=== PATIENT | male | born 1940 | race Caucasian/White ===

== ENCOUNTER 2019-02-22 11:17 | Inpatient (IN) ==
--- NOTE | 2019-02-22 11:29 | Emergency Department Note ---
Disposition Clinical Impression: Complete heart block, Malaise Fatigue Qualifiers: Fatigue type: unspecified Qualified Code(s): R53.83 - Other fatigue Disposition: Admitted As Inpatient Condition: Fair Time of Disposition: 12:30 Arrhythmia/Palpitations HPI - General Stated Complaint: "AV block" Time Seen by Provider: 02/22/19 11:28 Source: patient, family Mode of arrival: ambulatory Limitations: no limitations Nursing Notes Reviewed: Yes Vital Signs Reviewed: Yes - History of Present Illness HPI Narrative: Patient is a 79-year-old male past medical history of hyperlipidemia, BPH, diabetes, hypertension, presenting from cardiology clinic after one week of generalized malaise, back pain, fatigue. Patient states that he has "just not felt himself" lately and states that he has been getting more fatigued than usual. Patient states he has been having intermittent back pain which has since resolved which caused him to follow up with his urologist. CT scan done at urologist showed concern for cardiac blockage in the patient was sent to cardiology clinic for further evaluation. At cardiology clinic and EKG was c onducted that shows that the patient was in complete heart block which is why the patient was then sent to the emergency department. Upon presentation the patient is awake alert oriented he is engaged conversation answering questions appropriately he is in no acute distress there are no lateralizing signs. Skin is warm dry intact normal color, pupils are equal round reactive to light and accommodation, he is in no acute distress, cardiac auscultation reveals bradycardia, EKG does confirm a complete heart block without acute ischemic change, patient patient's lungs are clear to auscultation abdomen soft nontender nondistended, pulses are strong intact 4, there is no evidence of peripheral edema. Pacer pads were placed on the patient in the ED, vitals were taken and other than bradycardia were noted to be within normal limits, patient is otherwise stable at this time. We have contacted cardiology regarding the placement of a pacemaker who states that S patient is currently stable we she will hang a bag of dopamine at bedside in case he becomes symptomatic and otherwise admit to [facility] service with plans for permanent pacemaker placement tomorrow. Plan of care discussed with patient and his family members at bedside and they verbalized their understanding and agree with this course of action. Pt Subjective Complaint: irregular heart beat Onset (ago): day(s) Duration: constant Severity: moderate Associated symptoms: Reports: other (Fatigue, malaise) - Related Data Home Medications Medication Instructions Recorded Confirmed Aspirin/Dipyridamole 25/200 MG 1 cap PO BID 05/12/16 02/22/19 [Aggrenox 25mg-200mg] Finasteride [Proscar] 5 mg PO DAILY 05/12/16 02/22/19 Lisinopril [Zestril] 40 mg PO DAILY 05/12/16 02/22/19 Mirabegron [Myrbetriq] 25 mg PO 1300 05/12/16 02/22/19 Multivit-Min/FA/Lycopen/Lutein 1 tab PO 1300 05/12/16 02/22/19 [Centrum Silver Tablet] Pioglitazone [Actos] 45 mg PO DAILY 05/12/16 02/22/19 Simvastatin [Zocor] 40 mg PO HS 05/12/16 02/22/19 Sitagliptin Phosphate [Januvia] 50 mg PO DAILY 05/12/16 02/22/19 glyBURIDE [GlyBURIDE] 5 mg PO DAILY 05/12/16 02/22/19 Spironolactone [Aldactone] 50 mg PO 1300 12/19/16 02/22/19 Amlodipine Besylate 2.5 mg PO DAILY 02/22/19 02/22/19 Cholecalciferol (Vitamin D3) 2,000 unit PO 1300 02/22/19 02/22/19 [Vitamin D] Cinnamon Bark [Cinnamon] 1,000 mg PO 1300 02/22/19 02/22/19 DULoxetine [Cymbalta] 30 mg PO DAILY 02/22/19 02/22/19 Esomeprazole Magnesium [Nexium] 40 mg PO DAILY 02/22/19 02/22/19 Gabapentin [Neurontin] 300 mg PO HS 02/22/19 02/22/19 Ibuprofen/Diphenhydramine HCl 1 each PO HS 02/22/19 02/22/19 [Ibuprofen Pm Softgel] Ipratropium [place] 2 spray NS BID 02/22/19 02/22/19 Krill/Om-3/Dha/Epa/Phospho/Ast 1 each PO DAILY 02/22/19 02/22/19 [Krill Oil 500 mg Softgel] Metformin HCl [Glucophage] 1,000 mg PO BIDWM 02/22/19 02/22/19 Metoprolol Succinate [Toprol Xl] 50 mg PO DAILY 02/22/19 02/22/19 Tamsulosin [Flomax] 0.4 mg PO 1300 02/22/19 02/22/19 Vit C/E/Zn/Coppr/Lutein/Zeaxan 1 cap PO 1300 02/22/19 02/22/19 [Preservision Areds 2 Softgel] Allergies Allergy/AdvReac Type Severity Reaction Status Date / Time Penicillins AdvReac Rash Verified 12/19/16 11:03 Review of Systems: *See History of Present Illness for more detail Constitutional: Admits to fatigue, malaise Denies: fever, chills HEENT: Denies dysphagia/odynophagia, lymphadenopathy Cardiovascular: Denies: chest pain Respiratory: Denies: dyspnea, cough, hemoptysis Gastrointestinal: Denies: abdominal pain, nausea, vomiting, diarrhea, constipation, hematemesis, melena, hematochezia Genitourinary: Denies: hematuria Musculoskeletal: Admits: Recent resolved back pain, denies: neck pain Integumentary: Denies: rash Neurological: Admits: weakness, denies: Headaches, lightheadedness/dizziness, numbness, paresthesias, difficulty with ambulation. Endocrine: Admits: fatigue All systems ED: reviewed and negative except as stated. Review of Systems: As Per HPI Past Medical History - Past Medical History Medical history: Reports: cancer, CVA, diabetes, hyperlipidemia, hypertension Surgical history: Reports: hip replacement Psychiatric history: Reports: no psych history - Social History Smoking Status: Never smoker Smokeless Tobacco Status: No Alcohol use: Reports: none Drug use: Reports: none Physical Exam Constitutional: No acute distress, [id number], engaged to conversation, speech is fluid, answers questions appropriately Neuro: GCS 15, no overt focal neurological deficits Head: Atraumatic, normocephalic Eyes: Pupils equal, round and reactive to light, no scleral icterus, no conjunctival injection Neck: Trachea midline without deviation. Anterior neck is supple without swelling. *Chest: Symmetric chest wall rise *Heart: Cardiac rate is bradycardic, rhythm is regular with S1 and S2 , no S3 or S4 appreciated, no murmurs, gallops, rubs, or clicks. *Lungs: Lungs are clear to auscultation bilaterally, without accessory muscle use or prolonged expiratory phase. No wheezes, rhonchi or stridor appreciated. Abdomen: Abdomen is flat, soft to palpation, normal bowel sounds. No abdominal bruit auscultated. Non-distended, non-rigid, no organomegaly, no ascites appreciated. No pulsatile mass, no tenderness or guarding to palpation in all four quadrants, no rebound Extremities: Normal capillary refill without evidence of pedal edema, joint swelling or erythema. Pulses/motor intact in all 4 extremities. Psychiatric exam: Patient displays a normal affect and mood for the environment. No overt signs of hallucination. Integumentary: warm, dry, intact, normal color. No rash, cyanosis, diaphoresis, erythema, or pallor - General Limitations: no limitations General appearance: alert, in no apparent distress Course Course Narrative: Basic laboratory analysis conducted plus troponin, EKG, chest x-ray, coags Cardiology consult is placed and they will be following. Patient be admitted to hospital medicine service on ICU stepdown unit to [place] for further evaluation and management pending placement of permanent pacemaker tomorrow by interventional cardiology. Plan of care discussed with patient and family members at bedside and they verbalized understanding and agreement this course of action. The patient is currently hemodynamically stable time of admission. Vital Signs Temperature 97.9 F 02/22/19 11:29 Pulse Rate 32 02/22/19 11:29 Respiratory Rate 18 02/22/19 11:29 Blood Pressure 141/59 02/22/19 11:29 O2 Sat by Pulse Oximetry 98 02/22/19 11:29 Temperature 99.0 F 02/22/19 20:00 Pulse Rate 42 02/22/19 20:48 Respiratory Rate 16 02/22/19 20:00 Blood Pressure 127/77 02/22/19 20:00 O2 Sat by Pulse Oximetry 96 02/22/19 20:00 Oxygen Delivery Oxygen Delivery Room Air Arrhythmia/Palpitations - Lab Data Lab results reviewed: Yes I reviewed the patient's lab results. Result diagrams: 02/22/19 11:47 02/22/19 11:47 Lab Results 02/22/19 02/22/19 02/22/19 Range/Units 11:47 11:47 11:47 WBC 5.7 (4.3-11.1) K/mcL RBC 3.78 L (4.19-5.50) M/mcL Hgb 11.9 L (12.9-16.9) g/dL Hct 36.3 L (37.5-50.1) % MCV 96.0 (83.0-100.0) fL MCH 31.5 (28.0-33.3) pg MCHC 32.8 (31.6-35.5) g/dL RDW 14.3 (11.5-14.5) % Plt Count 210 (140-400) K/mcL MPV 10.1 (9.4-12.4) fL Immature Gran % 0.4 (0-4) % Seg Neutrophils % 74.2 % Lymphocytes % 13.5 % Monocytes % 9.0 % Eosinophils % 2.5 % Basophils % 0.4 % Neutrophils # 4.2 (1.6-8.9) K/mcL Lymphocytes # 0.8 (0.6-4.6) K/mcL Monocytes # 0.5 (0.0-1.3) K/mcL Eosinophils # 0.1 (0.0-0.6) K/mcL Basophils # 0.0 (0.0-0.2) K/mcL PT 11.8 (9.4-12.1) Seconds INR 1.0 APTT 30.3 (26.0-36.0) Seconds Sodium 137 (136-145) mEq/L Potassium 4.8 (3.5-5.1) mEq/L Chloride 102 (98-107) mEq/L Carbon Dioxide 26 (23-29) mEq/L BUN 18 (8-23) mg/dL Creatinine 1.06 (0.70-1.30) mg/dL Est GFR ( Amer) > 60 (> 60) Est GFR (Non-Af Amer) > 60 (> 60) BUN/Creatinine Ratio 17 (6-26) Glucose 246 H (70-105) mg/dL Calculated Osmolality 294 (280-300) Calcium 9.1 (8.6-10.3) mg/dL Magnesium 1.6 (1.6-2.6) mg/dL Troponin I < 0.03 (< 0.04) ng/mL TSH 2.860 (0.340-5.600) mcIU/mL - Radiology Data Radiology results reviewed: Yes I reviewed the patient's radiology results. Chest X-Ray 02/22/19 11:51 IMPRESSION: No acute cardiopulmonary process identified. D/ / John Paul Jimenez MD / John Paul Jiemnez MD Interpreting Provider: John Paul Jimenez MD - EKG Data EKG attestation: Yes I reviewed and interpreted this EKG. EKG results narrative: The patients EKG shows complete heart block at a computer analyzed rate of 35 beats per minute, a QRS duration of 98 milliseconds, a QT/QTc interval of 469 / 358 milliseconds respectively. There are no significant ST segment elevations, depressions, pathologic Q waves, abnormal T-wave inversions, nor any other signs of acute ischemic change. This EKG that was performed today is generally consistent in morphology with prior EKG that was performed on 05/12/2016.
[2019-02-22 12:09] LABS: Basophils % 0.4 %; Eosinophils # 0.1 K/mcL (0.0-0.6); Eosinophils % 2.5 %; Hematocrit 36.3 % (37.5-50.1); Hemoglobin 11.9 g/dL (12.9-16.9); Immature Granulocytes % 0.4 % (0-4); Lymphocytes # 0.8 K/mcL (0.6-4.6); Lymphocytes % 13.5 %; Mean Corpuscular HGB Conc 32.8 g/dL (31.6-35.5); Mean Corpuscular Hemoglobin 31.5 pg (28.0-33.3); Mean Platelet Volume 10.1 fL (9.4-12.4); Monocytes # 0.5 K/mcL (0.0-1.3); Neutrophils # 4.2 K/mcL (1.6-8.9); Platelet Count 210 K/mcL (140-400); Red Blood Count 3.78 M/mcL (4.19-5.50); Red Cell Distribution Width 14.3 % (11.5-14.5); Segmented Neutrophils % 74.2 %; White Blood Count 5.7 K/mcL (4.3-11.1)
--- NOTE | 2019-02-22 12:10 | Emergency Department Note ---
Disposition Clinical Impression: Complete heart block, Malaise Fatigue Qualifiers: Fatigue type: unspecified Qualified Code(s): R53.83 - Other fatigue Disposition: Admitted As Inpatient Condition: Fair Time of Disposition: 12:30 General Adult HPI - General Chief complaint: ED Weakness Stated complaint: "AV block" Time Seen by Provider: 02/22/19 11:28 Source: patient, family, other Limitations: no limitations - History of Present Illness Pain Scale: 0 - Related Data Home Medications Medication Instructions Recorded Confirmed Aspirin/Dipyridamole 25/200 MG 1 cap PO BID 05/12/16 02/22/19 [Aggrenox 25mg-200mg] Finasteride [Proscar] 5 mg PO DAILY 05/12/16 02/22/19 Lisinopril [Zestril] 40 mg PO DAILY 05/12/16 02/22/19 Mirabegron [Myrbetriq] 25 mg PO 1300 05/12/16 02/22/19 Multivit-Min/FA/Lycopen/Lutein 1 tab PO 1300 05/12/16 02/22/19 [Centrum Silver Tablet] Pioglitazone [Actos] 45 mg PO DAILY 05/12/16 02/22/19 Simvastatin [Zocor] 40 mg PO HS 05/12/16 02/22/19 Sitagliptin Phosphate [Januvia] 50 mg PO DAILY 05/12/16 02/22/19 glyBURIDE [GlyBURIDE] 5 mg PO DAILY 05/12/16 02/22/19 Spironolactone [Aldactone] 50 mg PO 1300 12/19/16 02/22/19 Amlodipine Besylate 2.5 mg PO DAILY 02/22/19 02/22/19 Cholecalciferol (Vitamin D3) 2,000 unit PO 1300 02/22/19 02/22/19 [Vitamin D] Cinnamon Bark [Cinnamon] 1,000 mg PO 1300 02/22/19 02/22/19 DULoxetine [Cymbalta] 30 mg PO DAILY 02/22/19 02/22/19 Esomeprazole Magnesium [Nexium] 40 mg PO DAILY 02/22/19 02/22/19 Gabapentin [Neurontin] 300 mg PO HS 02/22/19 02/22/19 Ibuprofen/Diphenhydramine HCl 1 each PO HS 02/22/19 02/22/19 [Ibuprofen Pm Softgel] Ipratropium [place] 2 spray NS BID 02/22/19 02/22/19 Krill/Om-3/Dha/Epa/Phospho/Ast 1 each PO DAILY 02/22/19 02/22/19 [Krill Oil 500 mg Softgel] Metformin HCl [Glucophage] 1,000 mg PO BIDWM 02/22/19 02/22/19 Metoprolol Succinate [Toprol Xl] 50 mg PO DAILY 02/22/19 02/22/19 Tamsulosin [Flomax] 0.4 mg PO 1300 02/22/19 02/22/19 Vit C/E/Zn/Coppr/Lutein/Zeaxan 1 cap PO 1300 02/22/19 02/22/19 [Preservision Areds 2 Softgel] Allergies Allergy/AdvReac Type Severity Reaction Status Date / Time Penicillins AdvReac Rash Verified 12/19/16 11:03 Past Medical History - Past Medical History Medical history: Reports: cancer, CVA, diabetes, hyperlipidemia, hypertension, kidney stones Surgical history: Reports: hip replacement Psychiatric history: Reports: no psych history - Social History Smoking Status: Never smoker Smokeless Tobacco Status: No Alcohol use: Reports: none Drug use: Reports: none Physical Exam - General Limitations: no limitations General appearance: alert, in no apparent distress Course Vital Signs Temperature 97.9 F 02/22/19 11:29 Pulse Rate 32 02/22/19 11:29 Respiratory Rate 18 02/22/19 11:29 Blood Pressure 141/59 02/22/19 11:29 O2 Sat by Pulse Oximetry 98 02/22/19 11:29 Temperature 99.0 F 02/22/19 20:00 Pulse Rate 42 02/22/19 20:48 Respiratory Rate 16 02/22/19 20:00 Blood Pressure 127/77 02/22/19 20:00 O2 Sat by Pulse Oximetry 96 02/22/19 20:00 Oxygen Delivery Oxygen Delivery Room Air Medical Decision Making - Lab Data Result diagrams: 02/22/19 11:47 02/22/19 11:47 Lab Results 02/22/19 02/22/19 02/22/19 Range/Units 11:47 11:47 11:47 WBC 5.7 (4.3-11.1) K/mcL RBC 3.78 L (4.19-5.50) M/mcL Hgb 11.9 L (12.9-16.9) g/dL Hct 36.3 L (37.5-50.1) % MCV 96.0 (83.0-100.0) fL MCH 31.5 (28.0-33.3) pg MCHC 32.8 (31.6-35.5) g/dL RDW 14.3 (11.5-14.5) % Plt Count 210 (140-400) K/mcL MPV 10.1 (9.4-12.4) fL Immature Gran % 0.4 (0-4) % Seg Neutrophils % 74.2 % Lymphocytes % 13.5 % Monocytes % 9.0 % Eosinophils % 2.5 % Basophils % 0.4 % Neutrophils # 4.2 (1.6-8.9) K/mcL Lymphocytes # 0.8 (0.6-4.6) K/mcL Monocytes # 0.5 (0.0-1.3) K/mcL Eosinophils # 0.1 (0.0-0.6) K/mcL Basophils # 0.0 (0.0-0.2) K/mcL PT 11.8 (9.4-12.1) Seconds INR 1.0 APTT 30.3 (26.0-36.0) Seconds Sodium 137 (136-145) mEq/L Potassium 4.8 (3.5-5.1) mEq/L Chloride 102 (98-107) mEq/L Carbon Dioxide 26 (23-29) mEq/L BUN 18 (8-23) mg/dL Creatinine 1.06 (0.70-1.30) mg/dL Est GFR ( Amer) > 60 (> 60) Est GFR (Non-Af Amer) > 60 (> 60) BUN/Creatinine Ratio 17 (6-26) Glucose 246 H (70-105) mg/dL Calculated Osmolality 294 (280-300) Calcium 9.1 (8.6-10.3) mg/dL Magnesium 1.6 (1.6-2.6) mg/dL Troponin I < 0.03 (< 0.04) ng/mL TSH 2.860 (0.340-5.600) mcIU/mL Attestation Statement - Attestation Attestation: I examined this patient and my medical decision-making was reviewed with the Resident Physician. I agree with the documented findings, disposition and treatment plan as described except to the extent set forth below. Patient 79-year-old Nenita presents to emergency department with chief complaint of complete heart block. Patient states that he has been feeling little weak for the last several days and was seen in the cardiology office today. The patient was found to be in a complete heart block with a rate of 35 and the patient was immediately sent to the emergency department. Currently the patient states that he feels well except for feeling a little weak. Exam patient is awake alert mentating well completely asymptomatic at this time. The patient has a heart rate of 35 Medical decision management the case was discussed with the metal trim erector religious education teacher who given the patient is currently asymptomatic the patient will be admitted to the hospitalist service and cardiology will be consults that at this time transcutaneous pacing pads will be placed on the patient but not started since the patient is alert and not having any symptoms. Dopamine will also be kept at bedside in case the patient becomes symptomatic. I personally supervised and was present for the ibarra/critical portions of the following procedures completed by the resident:EKG.
[2019-02-22 12:32] LABS: BUN/Creatinine Ratio 17 (6-26); Blood Urea Nitrogen 18 mg/dL (8-23); Calcium 9.1 mg/dL (8.6-10.3); Carbon Dioxide 26 mEq/L (23-29); Chloride 102 mEq/L (98-107); Glucose 246 mg/dL (70-105); Osmolality,Calculated 294 (280-300); Potassium 4.8 mEq/L (3.5-5.1); Sodium 137 mEq/L (136-145); Troponin I < 0.03 ng/mL (< 0.04); eGFR For African Americans > 60 (> 60); eGFR For Non-African Americans > 60 (> 60)
[2019-02-22 12:40] LABS: Magnesium 1.6 mg/dL (1.6-2.6)
[2019-02-22 12:42] LABS: Prothrombin Time 11.8 Seconds (9.4-12.1)
[2019-02-22 12:45] LABS: Activated Partial Thrombo Time 30.3 Seconds (26.0-36.0)
--- NOTE | 2019-02-22 13:12 | Cardiology Consult Note ---
<Ramon Merchant R - Last Filed: 02/22/19 13:23> Date of Encounter: 02/22/19 Time of Encounter: 13:09 Assessment and Plan (1) Complete heart block Current Visit: Yes Status: Acute Presented today for an outpt cardiology appt with family as referral from PCP for concerns of CT urogram with IV contrast at [place] on 01/25/19 that noted severe atherosclerotic disease including dense triple vessel coronary artery calcifications. Outpt ECG showed complete heart block, HR 30s and he was sent to ED. KMag WNL. Check TSH. Initial troponin negative. Denies any chest pain, dizziness, syncope, falls, palpitations. Does report the past few days some dyspnea on exertion. Family reports extreme sleepiness the past 6 months. TTE to evaluate structure and function. Previous TTE at outside facility in [facility] EF 55%. Discussed and reviewed with Dr. Chiu. If EF remains preserved, ischemic evaluation will not be warranted prior to PPM. Currently stable BP and asymptomatic, temporary pacemaker currently not warranted. Will plan for EP consult tomorrow and PPM during stay. Avoid AV marquis blockers. Continue to follow. Discussion w patient/family: The assessment and plan as outlined above was discussed with the patient and/or family members who expressed understanding and agreement. All questions were answered. Thank you for involving us in the care of your patient. Please call with any questions. I will discuss all the above with Dr. Chiu and make changes as necessary. History of Present Illness Consult date: 02/22/19 Consult reason: complete heart block Chief complaint: fatigue History of present illness: Mr. Barton is a 79 year old male with a relevant PMH of DM 2, HLD, HTN, history of CVA x 2 around 2011. He presented today for an outpt cardiology appt with family as referral from PCP for concerns of CT urogram with IV contrast at [place] on 01/25/19 that noted severe atherosclerotic disease including dense triple vessel coronary artery calcifications. ECG outpt revealed complete heart block and he was sent to ED for further evaluation. He denies any chest pain, dizziness, syncope, falls, palpitations. Does report the past few days some dyspnea on exertion. Family reports extreme sleepiness the past 6 months. 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 He denies any nicotine abuse history. Denies any previous cardiac history. HR 30s, complete heart block. Denies acute symptoms. Cardiology consulted for further recs. Past Med Surg Social Fam HX - Past Medical History Medical history: cancer, CVA, diabetes, hyperlipidemia, hypertension, kidney stones Additional medical history: CVA with no deficits 2010 Psychiatric history: no psych history - Past Surgical History Surgical History: hip replacement Additional surgical history: hip replacement 09/01/15 - Social History Smoking Status: Never smoker Smokeless Tobacco Status: No Alcohol use: none Drug use: none Medications and Allergies Aspirin/Dipyridamole 25/200 MG [Aggrenox 25mg-200mg] 1 cap PO BID 05/12/16 [History] Finasteride [Proscar] 5 mg PO DAILY 05/12/16 [History] Lisinopril [Zestril] 40 mg PO DAILY 05/12/16 [History] Mirabegron [Myrbetriq] 25 mg PO 1300 05/12/16 [History] Multivit-Min/FA/Lycopen/Lutein [Centrum Silver Tablet] 1 tab PO 1300 05/12/16 [History] Pioglitazone [Actos] 45 mg PO DAILY 05/12/16 [History] Simvastatin [Zocor] 40 mg PO HS 05/12/16 [History] Sitagliptin Phosphate [Januvia] 50 mg PO DAILY 05/12/16 [History] glyBURIDE [GlyBURIDE] 5 mg PO DAILY 05/12/16 [History] Spironolactone [Aldactone] 50 mg PO 1300 12/19/16 [History] Amlodipine Besylate 2.5 mg PO DAILY 02/22/19 [History] Cholecalciferol (Vitamin D3) [Vitamin D] 2,000 unit PO 1300 02/22/19 [History] Cinnamon Bark [Cinnamon] 1,000 mg PO 1300 02/22/19 [History] DULoxetine [Cymbalta] 30 mg PO DAILY 02/22/19 [History] Esomeprazole Magnesium [Nexium] 40 mg PO DAILY 02/22/19 [History] Gabapentin [Neurontin] 300 mg PO HS 02/22/19 [History] Ibuprofen/Diphenhydramine HCl [Ibuprofen Pm Softgel] 1 each PO HS 02/22/19 [History] Ipratropium [place] 2 spray NS BID 02/22/19 [History] Krill/Om-3/Dha/Epa/Phospho/Ast [Krill Oil 500 mg Softgel] 1 each PO DAILY 02/22/19 [History] Metformin HCl [Glucophage] 1,000 mg PO BIDWM 02/22/19 [History] Metoprolol Succinate [Toprol Xl] 50 mg PO DAILY 02/22/19 [History] Tamsulosin [Flomax] 0.4 mg PO 1300 02/22/19 [History] Vit C/E/Zn/Coppr/Lutein/Zeaxan [Preservision Areds 2 Softgel] 1 cap PO 1300 02/22/19 [History] Allergy/AdvReac Type Severity Reaction Status Date / Time Penicillins AdvReac Rash Verified 12/19/16 11:03 All Systems Review: The remainder of the systems were reviewed and are negative - Constitutional Constitutional: fatigue - Cardiovascular Cardiovascular: as per HPI, dyspnea on exertion Physical Examination Vital Signs, Last 4 Hours Temp Pulse Resp BP Pulse Ox 02/22/19 12:34 35 18 124/54 97 02/22/19 11:29 97.9 F 32 18 141/59 98 Vital Signs Temp Pulse Resp BP Pulse Ox 02/22/19 12:34 35 18 124/54 97 02/22/19 11:29 97.9 F 32 18 141/59 98 Intake and Output 02/21/19 02/22/19 02/22/19 23:59 07:59 15:59 Other: Weight 98.883 kg Patient Weight 02/22/19 23:59 Weight 98.883 kg General: Conversant, No Apparent Distress HEENT: Atraumatic, Normocephaly, Mucus Membranes Moist Neck: No JVD, Normal carotid pulses Cardiac: Reg Rate and Rhythm, Normal S1 and S2, No Murmur Lungs: Normal Breath Sounds, No Wheeze, Rales, Rhonchi Neuro: Alert and responsive, No focal deficits noted Abdomen: Soft, Non-Tender Skin: No rashes noted on visualized skin Musculoskeletal: No Chest Wall Tenderness Extremities: No Clubbing, No Cyanosis, No Edema, Normal Pulses Results 02/22/19 11:47 02/22/19 11:47 Lab Results 02/22/19 02/22/19 02/22/19 11:47 11:47 11:47 WBC 5.7 Hgb 11.9 L Hct 36.3 L Plt Count 210 INR 1.0 APTT 30.3 Sodium 137 Potassium 4.8 Chloride 102 Carbon Dioxide 26 BUN 18 Creatinine 1.06 Glucose 246 H Calcium 9.1 Magnesium 1.6 Troponin I < 0.03 Short CBC 02/22/19 Range/Units 11:47 WBC 5.7 (4.3-11.1) K/mcL Hgb 11.9 L (12.9-16.9) g/dL Hct 36.3 L (37.5-50.1) % Plt Count 210 (140-400) K/mcL Neutrophils # 4.2 (1.6-8.9) K/mcL BMP 02/22/19 Range/Units 11:47 Sodium 137 (136-145) mEq/L Potassium 4.8 (3.5-5.1) mEq/L Chloride 102 (98-107) mEq/L Carbon Dioxide 26 (23-29) mEq/L BUN 18 (8-23) mg/dL Creatinine 1.06 (0.70-1.30) mg/dL Glucose 246 H (70-105) mg/dL Calcium 9.1 (8.6-10.3) mg/dL Cardiac Enzymes 02/22/19 Range/Units 11:47 Troponin I < 0.03 (< 0.04) ng/mL Impressions Chest X-Ray 02/22/19 11:51 IMPRESSION: No acute cardiopulmonary process identified. D/ / John Paul Jimenez MD / John Paul Jimenez MD Interpreting Provider: John Paul Jimenez MD Active Medications Dopamine HCl/Dextrose (Dopamine Premix 400mg/250ml) 400 mg in 250 mls @ 9.27 mls/hr IVC .Q24H PERLA; Protocol Stop: 08/24/19 12:16 - EKG Interpretation EKG results cardiology: personally reviewed (complete heart block) Consult Discharge Plan - Plan < A - Last Filed: 02/22/19 21:15> Date of Encounter: 02/22/19 - Attending Attestation I have personally performed a face to face evaluation on this patient. I have reviewed and agree with the documented findings and care plan as documented by the CONSULTING SYSTEMS ENGINEER. History and Exam by me shows: 79-year-old male with dizziness and fatigue with EKG finding of complete heart block with narrow complex ventricular escape. Patient will need permanent pacemaker. He is hemodynamically stable at this point. Obtain echocardiogram. Thanks for the consult, please call with questions. Joaquim Chiu MD [facility] Assessment and Plan Discussion w patient/family: The assessment and plan as outlined above was discussed with the patient and/or family members who expressed understanding and agreement. All questions were answered. Thank you for involving us in the care of your patient. Please call with any questions. History of Present Illness History of present illness: Mr. Barton is a 79 year old male All Systems Review: The remainder of the systems were reviewed and are negative Physical Examination Vital Signs, Last 4 Hours Temp Pulse Resp BP Pulse Ox 02/22/19 20:48 42 02/22/19 20:00 99.0 F 38 16 127/77 96 Results 02/22/19 11:47 02/22/19 11:47 Lab Results 02/22/19 02/22/19 02/22/19 11:47 11:47 11:47 WBC 5.7 Hgb 11.9 L Hct 36.3 L Plt Count 210 INR 1.0 APTT 30.3 Sodium 137 Potassium 4.8 Chloride 102 Carbon Dioxide 26 BUN 18 Creatinine 1.06 Glucose 246 H Calcium 9.1 Magnesium 1.6 Troponin I < 0.03 TSH 2.860
[2019-02-22] MEDS ORDERED: Acetaminophen 325 MG TABLET PO PRN (14:13)
[2019-02-22] MEDS ORDERED: Ondansetron 4 MG/2 ML VIAL IVP PRN (14:13)
--- NOTE | 2019-02-22 14:19 | Internal Med History&Physical ---
Date of Encounter: 02/22/19 Time of Encounter: 13:35 Internal Medicine - H&P: HPI Chief complaint: Fatigue, AV block Admitted From: Emergency Dept History of present illness: Angel Luis Barton is a 79 M w hx CVA, HTN, HLD, DM2, BPH, OA s/p CRISTA, who was sent from cardio clinic to ED for complete heart block. Pt recently underwent CT at [place] on 01/25 which noted severe coronary calcifications and thus was referred to cardiology. At his cardio appointment, heart rate noted to be in the 30s. An ECG shows complete heart block for which patient was directed to our ED. Patient denies any palpitations, lightheadedness, CP, or syncopal episodes, and no falls. Does endorse general malaise as well as some exertional dyspnea. No fevers. Last TTE 2016 unremarkable, normal EF and wall motion, showing only mild diastolic dysfunction. In the ED, pt HR low 30s, other vitals wnl. Labs notable for Hb 12, Cr 1.06, K 4.8, Mg 1.6, TSH 3, trop <0.03. CXR unremarkable. Cardio evaluated patient in ED who recommended repeat TTE, admit for EP evaluation and likely pacemaker placement. Past medical, surgical, social, and family histories reviewed and updated; PMH as above, last surgery 09/2015 hip replacement c/b delirium, never smoker, FHx noncontibutory. Past Med Surg Social Fam HX - Past Medical History Medical history: cancer, CVA, diabetes, hyperlipidemia, hypertension, kidney stones Additional medical history: CVA with no deficits 2010 Psychiatric history: no psych history - Past Surgical History Surgical History: hip replacement Additional surgical history: hip replacement 09/01/15 - Social History Smoking Status: Never smoker Smokeless Tobacco Status: No Alcohol use: none Drug use: none Internal Medicine - H&P: Meds Aspirin/Dipyridamole 25/200 MG [Aggrenox 25mg-200mg] 1 cap PO BID 05/12/16 [History] Finasteride [Proscar] 5 mg PO DAILY 05/12/16 [History] Lisinopril [Zestril] 40 mg PO DAILY 05/12/16 [History] Mirabegron [Myrbetriq] 25 mg PO 1300 05/12/16 [History] Multivit-Min/FA/Lycopen/Lutein [Centrum Silver Tablet] 1 tab PO 1300 05/12/16 [History] Pioglitazone [Actos] 45 mg PO DAILY 05/12/16 [History] Simvastatin [Zocor] 40 mg PO HS 05/12/16 [History] Sitagliptin Phosphate [Januvia] 50 mg PO DAILY 05/12/16 [History] glyBURIDE [GlyBURIDE] 5 mg PO DAILY 05/12/16 [History] Spironolactone [Aldactone] 50 mg PO 1300 12/19/16 [History] Amlodipine Besylate 2.5 mg PO DAILY 02/22/19 [History] Cholecalciferol (Vitamin D3) [Vitamin D] 2,000 unit PO 1300 02/22/19 [History] Cinnamon Bark [Cinnamon] 1,000 mg PO 1300 02/22/19 [History] DULoxetine [Cymbalta] 30 mg PO DAILY 02/22/19 [History] Esomeprazole Magnesium [Nexium] 40 mg PO DAILY 02/22/19 [History] Gabapentin [Neurontin] 300 mg PO HS 02/22/19 [History] Ibuprofen/Diphenhydramine HCl [Ibuprofen Pm Softgel] 1 each PO HS 02/22/19 [History] Ipratropium [place] 2 spray NS BID 02/22/19 [History] Krill/Om-3/Dha/Epa/Phospho/Ast [Krill Oil 500 mg Softgel] 1 each PO DAILY 02/22/19 [History] Metformin HCl [Glucophage] 1,000 mg PO BIDWM 02/22/19 [History] Metoprolol Succinate [Toprol Xl] 50 mg PO DAILY 02/22/19 [History] Tamsulosin [Flomax] 0.4 mg PO 1300 02/22/19 [History] Vit C/E/Zn/Coppr/Lutein/Zeaxan [Preservision Areds 2 Softgel] 1 cap PO 1300 02/22/19 [History] Allergy/AdvReac Type Severity Reaction Status Date / Time Penicillins AdvReac Rash Verified 12/19/16 11:03 All Systems PM: A 10-system review of systems was performed and is negative for pertinent findings except as documented above in the HPI. - Constitutional Vitals: Temp Pulse Resp BP Pulse Ox 97.9 F 35 18 124/54 97 02/22/19 11:29 02/22/19 12:34 02/22/19 12:34 02/22/19 12:34 02/22/19 12:34 Exam: General: NAD, good eye contact, relatively well appearing, elderly Head: Atraumatic, normocephalic. Face symmetric Eyes: EOMI, sclerae anicteric ENT: Mucous membranes moist. Normal oral mucosa. Trachea midline. Thoracic: No visible chest wall deformities. Normal breath sounds b/l, no wheezing or crackles Cardio: Normal S1 and S2, regular rhythm, bradycardic. Abdomen: Soft, nontender, nondistended. Obese. Extremities: Warm, well perfused. Radial and DP pulses 2+ b/l. No clubbing, cyanosis. Mild nonpitting edema b/l legs. Skin: Intact. No rashes, bruises, or ulcers Neuro: Awake, fully oriented. Decent memory, good concentration and attention. Speech fluent. CN II-XII grossly intact. Strength 4/5 RUE. Internal Med - H&P Results - Labs CBC & Chem 7: 02/22/19 11:47 02/22/19 11:47 Labs: Short CBC 02/22/19 Range/Units 11:47 WBC 5.7 (4.3-11.1) K/mcL Hgb 11.9 L (12.9-16.9) g/dL Hct 36.3 L (37.5-50.1) % Plt Count 210 (140-400) K/mcL Neutrophils # 4.2 (1.6-8.9) K/mcL BMP 02/22/19 11:47 Sodium 137 Potassium 4.8 Chloride 102 Carbon Dioxide 26 BUN 18 Creatinine 1.06 Glucose 246 H Calcium 9.1 Cardiac Enzymes 02/22/19 Range/Units 11:47 Troponin I < 0.03 (< 0.04) ng/mL - Impressions ITS Impressions Chest X-Ray 02/22/19 11:51 IMPRESSION: No acute cardiopulmonary process identified. D/ / John Paul Jimenez MD / John Paul Jimenez MD Interpreting Provider: John Paul Jimenez MD - Summary of Assessment and Plan Summary of Assessment and Plan: Angel Luis Barton is a 79 M w hx CVA c/b RUE weakness, HTN, HLD, DM2, BPH, OA s/p CRISTA, who p/w bradycardia, ECG showing complete heart block. Complete Heart Block: - Cardio following - EP consult - tele - no indication for pacing at this time - TTE - likely needs ischemic eval, will defer to cardio Hypomagnesemia: replace and monitor CVA/HLD: home aggrenox bid, statin HTN: home amlodipine 2.5, lisinopril 40, holding home shabnam 50 DM2: holding metformin and glyburide, continue actos and januvia BPH: home flomax, finasteride PPx: SCDs Tele: yes Activity: up ad kita FEN: ADA then NPO@MN, no MIVF Lines: PIV Consults: Cardio, EP Code: Full Dispo: patient requires inpatient eval and management at this time, anticipate 2-3 days, will be homegoing
--- NOTE | 2019-02-22 18:35 | Electrocardiograph Report ---
[address] [place] [address] Test Date: 2019-02-22 Pat Name: Angel Luis Barton Department: [id number] Room: 2N11 Gender: M [employer]: : 1940 Requested By: Fabrice Guzman Order Number: [id number] Reading MD: Joaquim Chiu Measurements Intervals [place] Rate: 35 P: 0 AR: QRS: -9 QRSD: 98 T: 68 QT: 469 QTc: 358 Interpretive Statements AV block, complete (third degree) Electronically Signed On 02-22-2019 16:57:12 EDT by Joaquim Chiu
[2019-02-22] MEDS ORDERED: Perflutren Lipid Microsphere 1.3 ML in 0.9 % Sodium Chloride 8.7 ML IVP ONE (19:47)
[2019-02-22] MEDS: Gabapentin 300 MG CAPSULE PO SCH (20:46)
[2019-02-22] MEDS ORDERED: NON-FORMULARY MEDICATION 1 EACH EACH (Gabapentin [Neurontin] 800 MG) PO SCH (21:00)
[2019-02-22] MEDS ORDERED: SITAGLIPTIN PHOSPHATE 50 MG PO SCH (21:00)
[2019-02-23 02:08] LABS: Hematocrit 34.1 % (37.5-50.1); Hemoglobin 11.5 g/dL (12.9-16.9); Mean Corpuscular HGB Conc 33.7 g/dL (31.6-35.5); Mean Corpuscular Hemoglobin 31.9 pg (28.0-33.3); Mean Corpuscular Volume 94.5 fL (83.0-100.0); Mean Platelet Volume 10.8 fL (9.4-12.4); Platelet Count 210 K/mcL (140-400); Red Blood Count 3.61 M/mcL (4.19-5.50); Red Cell Distribution Width 14.4 % (11.5-14.5)
[2019-02-23 02:17] LABS: INR 1.1
[2019-02-23 02:27] LABS: BUN/Creatinine Ratio 20 (6-26); Blood Urea Nitrogen 18 mg/dL (8-23); Calcium 8.7 mg/dL (8.6-10.3); Carbon Dioxide 24 mEq/L (23-29); Chloride 106 mEq/L (98-107); Chol/HDL Ratio 2.7 (0-4.9); Cholesterol 108 mg/dL (< 200); Glucose 174 mg/dL (70-105); HDL Cholesterol 40 mg/dL (40-59); LDL Cholesterol,Calculated 53 mg/dL (0-99); Osmolality,Calculated 290 (280-300); Potassium 4.5 mEq/L (3.5-5.1); Sodium 137 mEq/L (136-145); Triglycerides 77 mg/dL (< 150); eGFR For African Americans > 60 (> 60); eGFR For Non-African Americans > 60 (> 60)
[2019-02-23 02:28] LABS: Troponin I < 0.03 ng/mL (< 0.04)
[2019-02-23] MEDS: amLODIPine 5 MG TABLET PO SCH (08:34)
[2019-02-23] MEDS: Finasteride 5 MG TABLET PO SCH (08:34)
[2019-02-23] MEDS: Lisinopril 20 MG TABLET PO SCH (08:34)
[2019-02-23] MEDS: *HR* Pioglitazone 45 MG TABLET PO SCH (08:34)
[2019-02-23] MEDS: *HR* SitaGLIPtin 100 MG TABLET PO SCH (08:42)
[2019-02-23] MEDS ORDERED: SITAGLIPTIN PHOSPHATE 50 MG PO SCH (09:00)
[2019-02-23] MEDS ORDERED: NON-FORMULARY MEDICATION 1 EACH EACH (Mirabegron [Myrbetriq] 25 MG) PO SCH (09:00)
[2019-02-23] MEDS ORDERED: PATIENT TAKING PO SCH ×2 (09:00→13:00)
[2019-02-23] MEDS ORDERED: *HR* SitaGLIPtin 25 MG TABLET PO SCH (09:00)
[2019-02-23] MEDS ORDERED: Clindamycin 900 MG/50 ML 900 MG/50 ML IV.SOLN IVPB ONE (09:21)
--- NOTE | 2019-02-23 10:15 | Event Note ---
Date of Encounter: 02/23/19 Time of Encounter: 10:13 - Cardiology Event Note TTE LVEF 65%. Normal RV structure and function. Mild aortic stenosis. Mild tricuspid regurgitation. Borderline pulmonary hypertension. No inpt ischemic evaluation warranted. Discussed and reviewed with Dr. Gerardo Miner. PPM insertion today for complete heart block. R/B/A discussed. Pt agrees to proceed.
--- NOTE | 2019-02-23 12:25 | Internal Med Progress Note ---
Hospitalist Progress Note - Encounter Date of Encounter: 02/23/19 Time of Encounter: 08:35 - Subjective Interval History: Pt denies symptoms including no CP, palpitations, SOB, edema, N/V, dizziness. Waiting patiently. Glad to hear his TTE was unremarkable and that he'll go for PPM placement today. - Exam Vitals: Temp Pulse Resp BP Pulse Ox 98.9 F 33 16 133/77 95 02/23/19 11:02/23/19 11:02/23/19 11:02/23/19 11:02/23/19 11:26 Exam: General: NAD, good eye contact, relatively well appearing, elderly Thoracic: Normal breath sounds b/l, no wheezing or crackles Cardio: Normal S1 and S2, regular rhythm, bradycardic. Abdomen: Soft, nontender, nondistended. Obese. Extremities: Warm, well perfused. Radial and DP pulses 2+ b/l. Mild nonpitting edema b/l legs. Skin: Intact. No rashes, bruises, or ulcers Neuro: Awake, fully oriented. Decent memory, good concentration and attention. Speech fluent. CN II-XII grossly intact. Strength 4/5 RUE. - Summary of Assessment and Plan Summary of Assessment and Plan: Angel Luis Barton is a 79 M w hx CVA c/b RUE weakness, HTN, HLD, DM2, BPH, OA s/p CRISTA, who p/w bradycardia, ECG showing complete heart block. Complete Heart Block: TTE without - EP consulted, plan for PPM today - tele - will need ischemic eval as outpatient CVA/HLD: home aggrenox bid, statin HTN: home amlodipine 2.5, lisinopril 40, holding home shabnam 50 DM2: holding metformin and glyburide, continue actos and januvia BPH: home flomax, finasteride PPx: SCDs Tele: yes Activity: up ad kita FEN: NPO then after procedure ADA, no MIVF Lines: PIV Consults: Cardio, EP Code: Full Dispo: patient requires inpatient eval and management at this time, anticipate d/c tomorrow, will be homegoing Internal Medicine: Result - Labs CBC & Chem 7: 02/23/19 01:42 02/23/19 01:42 Labs: Short CBC 02/23/19 Range/Units 01:42 WBC 7.0 (4.3-11.1) K/mcL Hgb 11.5 L (12.9-16.9) g/dL Hct 34.1 L (37.5-50.1) % Plt Count 210 (140-400) K/mcL BMP 02/22/19 02/23/19 11:47 01:42 Sodium 137 137 Potassium 4.8 4.5 Chloride 102 106 Carbon Dioxide 26 24 BUN 18 18 Creatinine 1.06 0.90 Glucose 246 H 174 H Calcium 9.1 8.7 Cardiac Enzymes 02/22/19 02/23/19 Range/Units 11:47 01:42 Troponin I < 0.03 < 0.03 (< 0.04) ng/mL - ABG Interpretation ABG results: PT/INR, D-dimer PT 12.0 Seconds (9.4-12.1) 02/23/19 01:42 - Impressions Impressions Echocardiogram 02/22/19 21:52 Impressions: LVEF 65%. Indeterminate diastolic function. Definity echo contrast was used. Normal right ventricular structure and function. Mild aortic stenosis. Mild tricuspid regurgitation. Borderline pulmonary hypertension. Left Ventricular Wall Motion: Rest Echo Findings All wall segments showed normal motion. Findings: Study Quality * Technically adequate exam. ECG Findings * High degree AVB with ventricular escape. Left Ventricle * LVEF 65%. * Indeterminate diastolic function. * LV chamber size and wall thickness are normal. * Definity echo contrast was used. Right Ventricle * Normal right ventricular structure and function. Left Atrium * Normal left atrial size. Right Atrium * Normal right atrial size. Aortic Valve * No aortic regurgitation. * Aortic valve not well visualized. * Mild aortic stenosis. Mitral Valve * No mitral regurgitation. * Trace mitral regurgitation. * Mitral valve not well visualized. Tricuspid Valve * Tricuspid valve not well visualized. * Mild tricuspid regurgitation. * Estimated RA pressure is 3 mmHg. * Estimated RVSP is 34 mmHg. * Borderline pulmonary hypertension. Pulmonic Valve * Pulmonic valve is not well visualized. * No pulmonic stenosis. * No pulmonic regurgitation. Pulmonary Artery * Pulmonary artery not well visualized. Aorta * Normally sized aortic root. Pericardium * There is no pericardial effusion present. Interatrial Septum * No evidence of PFO by color Doppler. IVC * Normal IVC dimensions and inspiratory collapse. Consult Discharge Plan - Plan Referrals: Sita Montero MD [Primary Care Provider] - 03/02/19 11:15 am
[2019-02-23] MEDS ORDERED: Cholecalciferol (D-3) 1,000 UNIT (25MCG) TABLET PO SCH (13:00)
[2019-02-23] MEDS ORDERED: *HR* FentaNYL (PF) 100 MCG/2 ML VIAL ONE (15:56)
[2019-02-23] MEDS ORDERED: Water for inj. (sterile) 10 ML ONE (15:57)
[2019-02-23] MEDS ORDERED: *HR* Midazolam HCl 2 MG/2 ML VIAL ONE (15:57)
[2019-02-23] MEDS ORDERED: 0.9 % Sodium Chloride 500 ML ONE (15:57)
--- NOTE | 2019-02-23 16:03 | Pre-Sedation Evaluation ---
Pre-sedation evaluation - Pre-sedation checklist Date of procedure: 02/23/19 Procedure: pacemaker Recent Vitals: Last Vital Signs Temp 98.9 F 02/23/19 11:26 Pulse 35 02/23/19 15:20 Resp 16 02/23/19 11:26 BP 133/77 02/23/19 11:26 Pulse Ox 95 02/23/19 11:26 H&P (including ROS) documented in medical record: Yes Previous reaction to sedatives/anesthetics: No Dietary Status: NPO after Midnight Airway Assessment: Patient can open mouth completely, TMJ function normal, Micrognathia (under-bite, receding chin) absent Dentition: No loose teeth or bridges Possible difficult airway: No ASA Classification *see protocol: CLASS II-Mild systemic disease Plan of Care: Pt appropriate candidate for procedure/moderate/conscious sedation, Risks/benefits of procedure/sedation discussed w/ patient/family
[2019-02-23] MEDS ORDERED: Clindamycin 600 MG/50 ML 600 MG/50 ML IV.SOLN IVPB ONE ×2 (16:26→16:28)
[2019-02-23] MEDS ORDERED: *HR* OxyCODONE Immed Rel 5 MG TABLET PO PRN (17:01)
[2019-02-23] MEDS ORDERED: Clindamycin 900 MG/50 ML 900 MG/50 ML IV.SOLN IVPB SCH (18:00)
[2019-02-23] MEDS: Gabapentin 300 MG CAPSULE PO SCH (19:59)
[2019-02-24 02:58] LABS: BUN/Creatinine Ratio 13 (6-26); Blood Urea Nitrogen 16 mg/dL (8-23); Carbon Dioxide 23 mEq/L (23-29); Chloride 102 mEq/L (98-107); Potassium 3.9 mEq/L (3.5-5.1); Sodium 136 mEq/L (136-145); eGFR For African Americans > 60 (> 60); eGFR For Non-African Americans 58 (> 60)
--- NOTE | 2019-02-24 07:35 | Discharge Summary ---
- NOTES TO OUTPATIENT PROVIDER Notes to Outpatient Provider: Complete heart block and now has pacer. Needs outpatient ischemic eval/stress test Date of Encounter: 02/24/19 Time of Encounter: 07:32 - Discharge Diagnosis (1) Complete heart block Priority: Primary Status: Acute Hospital course: Dear Doctors, I recently had the opportunity to care for this patient during their recent hospital stay at [facility]. Angel Luis Barton is a 79 M w hx CVA c/b RUE weakness, CHB s/p PPM, HTN, HLD, DM2, BPH, OA s/p CRISTA, who presented at time of admission from cardiology clinic with bradycardia, where an ECG showed complete heart block. In the ED, initial workup including CXR and troponin was negative. Admitted for cardio EP evaluation and likely pacemaker placement. In the hospital, TTE was unremarkable, and thus EP took patient on 02/23 for PPM insertion which went well without complication. Pt will follow up with Cardio in 1 week for wound check, 1 month for device check, and 3 months in EP clinic. Will need ischemic eval as outpatient. 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 Please contact me with any questions or concerns regarding their hospital stay. Sincerely, Alphonso Gamez MD - Discharge Medications Prescriptions: Continued Mirabegron [Myrbetriq] 25 mg PO 1300 Sitagliptin Phosphate [Januvia] 50 mg PO DAILY Aspirin/Dipyridamole 25/200 MG [Aggrenox 25mg-200mg] 1 cap PO BID Finasteride [Proscar] 5 mg PO DAILY glyBURIDE [GlyBURIDE] 5 mg PO DAILY Lisinopril [Zestril] 40 mg PO DAILY Multivit-Min/FA/Lycopen/Lutein [Centrum Silver Tablet] 1 tab PO 1300 Pioglitazone [Actos] 45 mg PO DAILY Simvastatin [Zocor] 40 mg PO HS Spironolactone [Aldactone] 50 mg PO 1300 Amlodipine Besylate 2.5 mg PO DAILY Cholecalciferol (Vitamin D3) [Vitamin D3] 2,000 unit PO 1300 Cinnamon Bark [Cinnamon] 1,000 mg PO 1300 DULoxetine [Cymbalta] 30 mg PO DAILY Esomeprazole Magnesium [Nexium] 40 mg PO DAILY Gabapentin [Neurontin] 300 mg PO HS Ibuprofen/Diphenhydramine HCl [Ibuprofen Pm Softgel] 1 each PO HS Ipratropium [place] 2 spray NS BID Krill/Om-3/Dha/Epa/Phospho/Ast [Krill Oil 500 mg Softgel] 1 each PO DAILY Metformin HCl [Glucophage] 1,000 mg PO BIDWM Metoprolol Succinate [Toprol Xl] 50 mg PO DAILY Tamsulosin [Flomax] 0.4 mg PO 1300 Vit C/E/Zn/Coppr/Lutein/Zeaxan [Preservision Areds 2 Softgel] 1 cap PO 1300 Home Medications: Aspirin/Dipyridamole 25/200 MG [Aggrenox 25mg-200mg] 1 cap PO BID 05/12/16 [History] Finasteride [Proscar] 5 mg PO DAILY 05/12/16 [History] Lisinopril [Zestril] 40 mg PO DAILY 05/12/16 [History] Mirabegron [Myrbetriq] 25 mg PO 1300 05/12/16 [History] Multivit-Min/FA/Lycopen/Lutein [Centrum Silver Tablet] 1 tab PO 1300 05/12/16 [History] Pioglitazone [Actos] 45 mg PO DAILY 05/12/16 [History] Simvastatin [Zocor] 40 mg PO HS 05/12/16 [History] Sitagliptin Phosphate [Januvia] 50 mg PO DAILY 05/12/16 [History] glyBURIDE [GlyBURIDE] 5 mg PO DAILY 05/12/16 [History] Spironolactone [Aldactone] 50 mg PO 1300 12/19/16 [History] Amlodipine Besylate 2.5 mg PO DAILY 02/22/19 [History] Cholecalciferol (Vitamin D3) [Vitamin D3] 2,000 unit PO 1300 02/22/19 [History] Cinnamon Bark [Cinnamon] 1,000 mg PO 1300 02/22/19 [History] DULoxetine [Cymbalta] 30 mg PO DAILY 02/22/19 [History] Esomeprazole Magnesium [Nexium] 40 mg PO DAILY 02/22/19 [History] Gabapentin [Neurontin] 300 mg PO HS 02/22/19 [History] Ibuprofen/Diphenhydramine HCl [Ibuprofen Pm Softgel] 1 each PO HS 02/22/19 [History] Ipratropium [place] 2 spray NS BID 02/22/19 [History] Krill/Om-3/Dha/Epa/Phospho/Ast [Krill Oil 500 mg Softgel] 1 each PO DAILY 02/22/19 [History] Metformin HCl [Glucophage] 1,000 mg PO BIDWM 02/22/19 [History] Metoprolol Succinate [Toprol Xl] 50 mg PO DAILY 02/22/19 [History] Tamsulosin [Flomax] 0.4 mg PO 1300 02/22/19 [History] Vit C/E/Zn/Coppr/Lutein/Zeaxan [Preservision Areds 2 Softgel] 1 cap PO 1300 02/22/19 [History] Allergies/Adverse Reactions: Allergy/AdvReac Type Severity Reaction Status Date / Time Penicillins AdvReac Rash Verified 12/19/16 11:03 Date of admission: 02/22/19 14:58 Primary care physician: Sita Montero Consults: 02/22/19 13:29 Consult to Cardiology [CONS] Stat Comment: Consulting Provider: Cardiology Lesly Reason for Consult: Complete heart block Time Notified: 13:29 Call Completed: Yes - Constitutional Vitals: Temp Pulse Resp BP Pulse Ox 98.5 F 63 16 163/72 94 02/24/19 07:15 02/24/19 07:15 02/24/19 07:15 02/24/19 07:15 02/24/19 07:15 Exam: General: NAD, good eye contact, relatively well appearing, elderly Thoracic: Normal breath sounds b/l, no wheezing or crackles. Pacer present L chest. Cardio: Normal S1 and S2, regular rhythm, bradycardic. Abdomen: Soft, nontender, nondistended. Obese. Extremities: Warm, well perfused. Radial and DP pulses 2+ b/l. Mild nonpitting edema b/l legs. Skin: Intact. No rashes, bruises, or ulcers Neuro: Awake, fully oriented. Decent memory, good concentration and attention. Speech fluent. CN II-XII grossly intact. Strength 4/5 RUE. - Patient Status Disposition: Home, Self-Care Condition: Fair Functional capacity at discharge: independent ambulation Overall status at discharge: patient is back to baseline - Discharge Instructions Instructions: Influenza Virus Vaccine (Injection), Pacemaker (DC), Pacemaker (GEN) Follow Up With: 1 week, wound check [Other] - 03/04/19 10:00 am (They will make the other two appointments at this appointment Per the office) Sita Montero MD [Primary Care Provider] - 03/02/19 11:15 am Additional Instructions: ACTIVITY: Moderate activity for the next 7 days. No lifting more than 5 pounds (gallon of milk) for 4-6 weeks. Avoid lifting your arm on the same side as the device for 4 weeks. BATHING /SHOWERING: Do not remove the large bandage over the site for 2 days. Do not allow the device to get wet for 7-10 days. You may bathe/shower, but do not use soap and water on the site. When bathing, keep the site dry by covering with Saran wrap or a towel. WOUND CARE: The white steri-strips will start to peel away and come off after 14 days, or your doctor will remove them after [address] anything into or on top of the incision. Do not use cotton swabs. Do not use any antibiotic ointment or Vitamin E on the site. REMINDERS: You may use electrical devices, such as, microwaves, hair dryers, electric razors, electric blankets, etc. as long as they are in good condition and kept 6-8 inches away from the device. It is recommended to use cell phones on the opposite side of your device. Notify security personnel at the airport that you have a device before you go through airport security screening. When at places with security monitors, such as a grocery store, do not linger near these monitors. It is fine to walk past them in a normal manner. Refer to your owners manual for more specific directions. CARRY YOUR PACEMAKER/ICD CARD WITH YOU AT ALL TIMES Return to work as instructed per physician Resume driving as instructed per physician Keep all scheduled follow up appointments Resume medications as instructed Contact [facility] ( ) if: You develop excessive bleeding from insertion or wound site not controlled by applying pressure You develop a fever greater than 101 degrees Fahrenheit Your incision becomes reddened at or around the site Your incision develops yellowish or greenish drainage or development of white pimple-like bumps You experience excessive pain You develop swelling in your ankles You experience muscle switching You develop excessive hiccupping If you experience chest pain, shortness of breath, dizziness, or extreme tiredness, stop the activity and rest. Please notify [facility] office if you experience any of these symptoms and they are not relieved by rest please call 911! - Diet and Activity Activity: resume usual activities as tolerated (see cardio restrictions for next 7 days) Diet: advance to your usual diet
[2019-02-24] MEDS: amLODIPine 5 MG TABLET PO SCH (08:13)
[2019-02-24] MEDS: *HR* Pioglitazone 45 MG TABLET PO SCH (08:13)
[2019-02-24] MEDS: Finasteride 5 MG TABLET PO SCH (08:14)
[2019-02-24] MEDS: *HR* SitaGLIPtin 100 MG TABLET PO SCH (08:14)
[2019-02-24] MEDS: Lisinopril 20 MG TABLET PO SCH (08:14)
--- NOTE | 2019-02-24 08:54 | Cardiology Progress Note ---
Date of Encounter: 02/24/19 Assessment and Plan Discussion w patient/family: The assessment and plan as outlined above was discussed with the patient and/or family members who expressed understanding and agreement. All questions were answered. Thank you for involving us in the care of your patient. Please call with any questions. Objective Vital Signs, Last 4 Hours Temp Pulse Resp BP Pulse Ox 02/24/19 07:15 98.5 F 63 16 163/72 94 Results 02/23/19 01:42 02/24/19 01:17 Lab Results 02/24/19 01:17 Sodium 136 Potassium 3.9 Chloride 102 Carbon Dioxide 23 BUN 16 Creatinine 1.20 Consult Discharge Plan - Plan Instructions: Pacemaker (DC), Pacemaker (GEN) Referrals: Sita Montero MD [Primary Care Provider] - 03/02/19 11:15 am
--- NOTE | 2019-02-24 10:08 | Electrophysiology ProgressNote ---
Date of Encounter: 02/24/19 Time of Encounter: 10:04 Assessment and Plan (1) Complete heart block Current Visit: Yes Status: Acute Presented to outpt cardiology appt with family as referral from PCP for concerns of CT urogram with IV contrast at [place] on 01/25/19 that noted severe atherosclerotic disease including dense triple vessel coronary artery ca lcifications. Outpt ECG showed complete heart block, HR 30s and he was sent to ED. Mag Jinny WNL. Check TSH. Initial troponin negative. Denies any chest pain, dizziness, syncope, falls, palpitations. Does report the past few days some dyspnea on exertion. Family reports extreme sleepiness the past 6 months. TTE LVEF 65%. Normal RV structure and function. Mild aortic stenosis. Mild tricuspid regurgitation. Borderline pulmonary hypertension. No inpt ischemic evaluation warranted. S/P PPM insertion yesterday 02/23. Device check okay. AM CXR pending. Left chest device site healing well. No bleeding, hematoma or ecchymosis. Restrictions discussed. If CXR is without significant findings, will sign off. Reconsult PRN. Will coordinate outpt follow-up in 1 week for wound check, device check in 4-6 weeks and in [address] Gerardo Miner. Discussion w patient/family: The assessment and plan as outlined above was discussed with the patient and/or family members who expressed understanding and agreement. All questions were answered. Thank you for involving us in the care of your patient. Please call with any questions. I will discuss all the above with Dr. Gerardo Miner and make changes as necessary. Subjective Principal diagnosis: complete heart block Interval history: No acute complaints this AM. S/P PPM insertion yesterday. Objective Vital Signs, Last 4 Hours Temp Pulse Resp BP Pulse Ox 02/24/19 07:15 98.5 F 63 16 163/72 94 Vital Signs Temp Pulse Resp BP Pulse Ox 02/24/19 07:15 98.5 F 63 16 163/72 94 02/24/19 03:40 98.0 F 67 16 176/91 95 02/23/19 23:47 97.4 F L 64 16 151/63 95 02/23/19 20:01 701 02/23/19 20:00 72 166/81 02/23/19 19:00 70 136/68 02/23/19 18:49 98.2 F 68 18 141/62 93 09/24/19 18:30 98.7 F 78 16 117/59 93 02/23/19 18:00 98.7 F 76 18 140/78 93 02/23/19 17:45 98.7 F 68 18 146/70 94 02/23/19 17:30 98.6 F 69 16 162/82 96 02/23/19 17:17 64 18 164/83 96 02/23/19 17:15 70 16 164/83 97 02/23/19 15:20 35 02/23/19 11:26 98.9 F 33 16 133/77 95 02/23/19 11:21 35 Intake and Output 02/23/19 02/24/19 02/24/19 23:59 07:59 15:59 Intake Total 240 / 240 360 / 360 Balance 240 / -785 360 / 360 Intake: Oral 240 / 240 360 / 360 Other: Meal Dinner Breakfast Percent of Meal Consumed 100% 75% Weight 99.1 kg Blood Glucose* 178 124 Patient Weight 02/24/19 23:59 Weight 99.1 kg General: Conversant, No Apparent Distress HEENT: Atraumatic, Normocephaly, Mucus Membranes Moist Neck: No JVD, Normal carotid pulses Cardiac: Reg Rate and Rhythm, Normal S1 and S2, No Murmur Lungs: Normal Breath Sounds, No Wheeze, Rales, Rhonchi Neuro: Alert and responsive, No focal deficits noted Abdomen: Soft, Non-Tender Skin: Other (left chest device site healing well. No bleeding, hematoma or ecchymosis noted. Steri strips intact.) Musculoskeletal: No Chest Wall Tenderness Extremities: No Clubbing, No Cyanosis, No Edema, Normal Pulses Results 02/23/19 01:42 02/24/19 01:17 Lab Results 02/24/19 01:17 Sodium 136 Potassium 3.9 Chloride 102 Carbon Dioxide 23 BUN 16 Creatinine 1.20 BMP 02/24/19 Range/Units 01:17 Sodium 136 (136-145) mEq/L Potassium 3.9 (3.5-5.1) mEq/L Chloride 102 (98-107) mEq/L Carbon Dioxide 23 (23-29) mEq/L BUN 16 (8-23) mg/dL Creatinine 1.20 (0.70-1.30) mg/dL Impressions Chest X-Ray 02/23/19 17:34 IMPRESSION: Dual lead left subclavian ICD placement. No acute cardiac or pulmonary disease. D/ / Roddy Parra MD / Roddy Parra MD Interpreting Provider: Roddy Parra MD Active Medications Acetaminophen (Tylenol) 650 mg PO Q6HR PRN PRN Reason: Mild Pain/Fever Stop: 08/24/19 14:14 Amlodipine Besylate (Norvasc) 2.5 mg PO DAILY [facility] Stop: 08/25/19 09:01 Last Admin: 02/24/19 08:13 Dose: 2.5 mg Documented by: Dipyridamole/Aspirin (Aggrenox 25mg-200mg) 1 cap PO BID [facility] Stop: 08/24/19 21:01 Last Admin: 02/24/19 08:14 Dose: 1 cap Documented by: Duloxetine HCl (Cymbalta) 30 mg PO DAILY [facility] Stop: 08/25/19 09:01 Last Admin: 02/24/19 08:14 Dose: 30 mg Documented by: Finasteride (Proscar) 5 mg PO DAILY [facility]; Protocol Stop: 08/25/19 09:01 Last Admin: 02/24/19 08:14 Dose: 5 mg Documented by: Gabapentin (Neurontin) 300 mg PO HS [facility] Stop: 08/24/19 21:01 Last Admin: 02/23/19 19:59 Dose: 300 mg Documented by: Dopamine HCl/Dextrose (Dopamine Premix 400mg/250ml) 400 mg in 250 mls @ 9.27 mls/hr IVC .Q24H [facility]; Protocol Stop: 08/24/19 12:16 Lisinopril (Zestril) 40 mg PO DAILY [facility] Stop: 08/25/19 09:01 Last Admin: 02/24/19 08:14 Dose: 40 mg Documented by: Ondansetron HCl (Zofran) 4 mg IVP Q8HR PRN PRN Reason: Nausea And Vomiting Stop: 08/24/19 14:14 Oxycodone HCl (Roxicodone) 5 mg PO Q4HR PRN; Protocol PRN Reason: Severe Pain Stop: 03/25/20 17:02 Pharmacy Profile Note (Patient Taking Own Medication) 1 each PO 1300 [facility] Stop: 08/25/19 13:01 Last Admin: 02/23/19 15:44 Dose: Not Given Documented by: Pioglitazone HCl (Actos) 45 mg PO DAILY [facility] Stop: 08/25/19 09:01 Last Admin: 02/24/19 08:13 Dose: 45 mg Documented by: Simvastatin (Zocor) 40 mg PO HS [facility]; Protocol Stop: 08/24/19 21:01 Last Admin: 02/23/19 19:59 Dose: 40 mg Documented by: Sitagliptin Phosphate (Januvia) 50 mg PO DAILY [facility] Stop: 08/25/19 09:01 Last Admin: 02/24/19 08:14 Dose: 50 mg Documented by: Tamsulosin HCl (Flomax) 0.4 mg PO DAILY [facility]; Protocol Stop: 08/25/19 09:01 Last Admin: 02/24/19 08:14 Dose: 0.4 mg Documented by: Vitamin D (Vitamin D) 2,000 unit PO 1300 [facility] Stop: 08/25/19 13:01 Last Admin: 02/23/19 15:44 Dose: Not Given Documented by: - Imaging and Cardiology Echo: report reviewed Consult Discharge Plan - Plan Instructions: Pacemaker (DC), Pacemaker (GEN) Additional Instructions: ACTIVITY: Moderate activity for the next 7 days. No lifting more than 5 pounds (gallon of milk) for 4-6 weeks. Avoid lifting your arm on the same side as the device for 4 weeks. BATHING /SHOWERING: Do not remove the large bandage over the site for 2 days. Do not allow the device to get wet for 7-10 days. You may bathe/shower, but do not use soap and water on the site. When bathing, keep the site dry by covering with Saran wrap or a towel. WOUND CARE: The white steri-strips will start to peel away and come off after 14 days, or your doctor will remove them after [address] anything into or on top of the incision. Do not use cotton swabs. Do not use any antibiotic ointment or Vitamin E on the site. REMINDERS: You may use electrical devices, such as, microwaves, hair dryers, electric razors, electric blankets, etc. as long as they are in good condition and kept 6-8 inches away from the device. It is recommended to use cell phones on the opposite side of your device. Notify security personnel at the airport that you have a device before you go through airport security screening. When at places with security monitors, such as a grocery store, do not linger near these monitors. It is fine to walk past them in a normal manner. Refer to your owners manual for more specific directions. CARRY YOUR PACEMAKER/ICD CARD WITH YOU AT ALL TIMES Return to work as instructed per physician Resume driving as instructed per physician Keep all scheduled follow up appointments Resume medications as instructed Contact [facility] ( ) if: You develop excessive bleeding from insertion or wound site not controlled by applying pressure You develop a fever greater than 101 degrees Fahrenheit Your incision becomes reddened at or around the site Your incision develops yellowish or greenish drainage or development of white pimple-like bumps You experience excessive pain You develop swelling in your ankles You experience muscle switching You develop excessive hiccupping If you experience chest pain, shortness of breath, dizziness, or extreme tiredness, stop the activity and rest. Please notify [facility] office if you experience any of these symptoms and they are not relieved by rest please call 911! Referrals: 1 week, wound check [Other] - 03/04/19 10:00 am (They will make the other two ap pointments at this appointment Per the office) Sita Montero MD [Primary Care Provider] - 03/02/19 11:15 am
[2019-02-24] MEDS ORDERED: FLU Vac QV 19-20 (6Month+)/PF 0.5 ML SYRINGE IM ONE (10:10)
[2019-02-24 11:51] VITALS: BP 154/83
== END 2019-02-24 12:20 | disposition home or self-care (01) | DRG 244 ==
LOC: EMEROOARM 11:17 → SUATTDRO 14:58 → 2NNU 14:58
PROVIDERS: ADMIT Internal Medicine; ATTEND Internal Medicine

== ENCOUNTER 2019-03-22 06:14 | Inpatient (IN) ==
[~2019-03-22 06:14] MED LIST: *HR* Etomidate 20 MG/10 ML AMPUL IVP ONE; *HR* FentaNYL (PF) 1,000 MCG/20 ML VIAL ONE; *HR* Midazolam HCl 5 MG/5 ML VIAL IVP ONE; *HR* PHENYLEPHRINE 1,000 MCG/10 ML SYRINGE IVP ONE; *HR* Rocuronium Bromide 50 MG/5 ML VIAL ONE; Calcium Gluconate 1,000 MG/10 ML VIAL ONE; Famotidine 20 MG/2 ML VIAL ONE; NiCARdipine 2.5 MG/10 ML Syringe IVPB ONE; Nitroglycerin 25 MG/250 ML INFUS..BTL IVC ONE; Protamine Sulfate 250 MG/25 ML VIAL IVP ONE; Tranexamic Acid 1,000 MG/10 ML VIAL ONE
[2019-03-22] MEDS ORDERED: Ringers Solution, Lactated 1,000 ML IVC SCH (06:45)
[2019-03-22] MEDS ORDERED: Clindamycin 900 MG/50 ML 900 MG/50 ML IV.SOLN IVPB ONE (07:12)
[2019-03-22] MEDS: Aspirin 81 MG TAB.CHEW PO SCH ×2 (07:26→12:43)
[2019-03-22] MEDS ORDERED: Lidocaine 2% Syringe 100 MG/5 ML IV ONE (07:43)
[2019-03-22] MEDS ORDERED: *HR* Magnesium Sulfate 2 GM/50 ML PIGGYBACK IVPB ONE (07:43)
[2019-03-22] MEDS ORDERED: Clindamycin 600 MG/50 ML IV.SOLN IVPB ONE (07:43)
[2019-03-22] MEDS ORDERED: *HR* Phenylephrine 10 MG/ML VIAL IVC ONE (07:43)
[2019-03-22] MEDS ORDERED: *HR* Heparin 10,000 UNIT/10 ML VIAL IV ONE (07:43)
[2019-03-22] MEDS ORDERED: Albumin Human 25% 25 GM/100 ML IV.SOLN IV ONE (07:43)
[2019-03-22] MEDS ORDERED: Tranexamic Acid 1,000 MG/10 ML VIAL IVPB ONE (07:43)
[2019-03-22] MEDS ORDERED: Heparin 15,000 UNIT in 0.9 % Sodium Chloride 500 ML IV ONE (07:45)
[2019-03-22] MEDS ORDERED: Dextrose 50 % in Water (Vial) 30 ML, Sodium Bicarbonate 20 MEQ, Lidocaine 1% 5 ML, Insu... TH ONE ×3 (07:45)
[2019-03-22] MEDS ORDERED: Dextrose 50 % in Water (Vial) 30 ML, Sodium Bicarbonate 20 MEQ, Potassium Chloride 15 M... TH ONE (07:45)
[2019-03-22] MEDS ORDERED: Norepinephrine 4 MG in 0.9 % Sodium Chloride 250 ML IVC PRN (07:45)
[2019-03-22] MEDS ORDERED: Insulin Human Regular 100 UNIT in 0.9 % Sodium Chloride 100 ML IV PRN (07:45)
[2019-03-22] MEDS ORDERED: Chlorhexidine Rinse 15 ML MOUTHWASH MM SCH (09:00)
[2019-03-22] MEDS ORDERED: Tranexamic Acid 1,000 MG/10 ML VIAL ONE (09:20)
[2019-03-22] MEDS ORDERED: *HR* PHENYLEPHRINE 1,000 MCG/10 ML SYRINGE IVP ONE (09:37)
[2019-03-22 09:51] LABS: ABG Base Excess -2 mEq/L (-2 to 3); ABG Chloride 101 mEq/L (98-107); ABG Glucose 270 mg/dL (60-95); ABG HCO3 22 mEq/L (21-27); ABG Ionized Calcium 1.22 mmol/L (1.15-1.35); ABG Oxygen Saturation 100 % (95-98); ABG PCO2 35 mmHg (35-45); ABG PH 7.41 pH Units (7.32-7.45); ABG PO2 162 mmHg (85-104); ABG TCO2 24 mEq/L (20-26)
[2019-03-22 10:39] LABS: ABG Base Excess 1 mEq/L (-2 to 3); ABG Chloride 98 mEq/L (98-107); ABG Glucose 268 mg/dL (60-95); ABG HCO3 24 mEq/L (21-27); ABG Ionized Calcium 1.04 mmol/L (1.15-1.35); ABG Oxygen Saturation 100 % (95-98); ABG PCO2 32 mmHg (35-45); ABG PH 7.48 pH Units (7.32-7.45); ABG PO2 519 mmHg (85-104); ABG TCO2 25 mEq/L (20-26)
[2019-03-22] MEDS ORDERED: *HR* Rocuronium Bromide 50 MG/5 ML VIAL ONE (10:42)
[2019-03-22 10:55] LABS: ABG Base Excess 0 mEq/L (-2 to 3); ABG Chloride 96 mEq/L (98-107); ABG Glucose 194 mg/dL (60-95); ABG HCO3 25 mEq/L (21-27); ABG Ionized Calcium 1.08 mmol/L (1.15-1.35); ABG Oxygen Saturation 100 % (95-98); ABG PCO2 43 mmHg (35-45); ABG PH 7.37 pH Units (7.32-7.45); ABG PO2 471 mmHg (85-104); ABG TCO2 26 mEq/L (20-26)
[2019-03-22 11:36] LABS: ABG Base Excess -2 mEq/L (-2 to 3); ABG Chloride 98 mEq/L (98-107); ABG Glucose 146 mg/dL (60-95); ABG HCO3 23 mEq/L (21-27); ABG Ionized Calcium 1.29 mmol/L (1.15-1.35); ABG Oxygen Saturation 98 % (95-98); ABG PCO2 41 mmHg (35-45); ABG PH 7.37 pH Units (7.32-7.45); ABG PO2 114 mmHg (85-104); ABG TCO2 24 mEq/L (20-26)
[2019-03-22] MEDS ORDERED: Calcium Gluconate 1gm/50mL 1 GM/50 ML BAG IVPB PRN (12:02)
[2019-03-22] MEDS ORDERED: *HR* Dextrose 50 % in Water (Syg) 50 ML SYRINGE IVP PRN (12:02)
[2019-03-22] MEDS ORDERED: Insulin Regular, Human 100 UNIT/ML IV PRN (12:02)
[2019-03-22] MEDS ORDERED: Potassium Chloride 40 MEQ/200 ML BAG IVPB PRN (12:02)
[2019-03-22] MEDS ORDERED: Acetaminophen 650 MG RECTAL SUPP RC PRN (12:02)
[2019-03-22] MEDS ORDERED: Ondansetron 4 MG/2 ML VIAL IVP PRN (12:02)
[2019-03-22] MEDS ORDERED: Acetaminophen 325 MG TABLET PO PRN (12:02)
[2019-03-22 12:13] LABS: ABG Base Excess 0 mEq/L (-2 to 3); ABG HCO3 25 mEq/L (21-27); ABG Oxygen Saturation 96 % (95-98); ABG PCO2 39 mmHg (35-45); ABG PH 7.41 pH Units (7.32-7.45); ABG PO2 80 mmHg (85-104); ABG TCO2 26 mEq/L (20-26); Blood Gas VT 480 cc
[2019-03-22] MEDS ORDERED: Norepinephrine 4 MG in 0.9 % Sodium Chloride 250 ML IVC SCH (12:15)
[2019-03-22] MEDS ORDERED: 0.9 % Sodium Chloride w KCl 20 MEQ/1,000 ML MLS IVC SCH (12:15)
[2019-03-22 12:31] LABS: INR 1.7; Prothrombin Time 19.7 Seconds (9.4-12.1)
[2019-03-22 12:36] LABS: Basophils % 0.2 %; Eosinophils # 0.1 K/mcL (0.0-0.6); Eosinophils % 1.7 %; Hematocrit 22.5 % (37.5-50.1); Hemoglobin 7.4 g/dL (12.9-16.9); Immature Granulocytes % 0.7 % (0-4); Immature Platelets 1.6 % (1.1-6.1); Lymphocytes # 0.5 K/mcL (0.6-4.6); Lymphocytes % 8.3 %; Mean Corpuscular HGB Conc 32.9 g/dL (31.6-35.5); Mean Corpuscular Hemoglobin 31.5 pg (28.0-33.3); Mean Corpuscular Volume 95.7 fL (83.0-100.0); Mean Platelet Volume 8.9 fL (9.4-12.4); Monocytes # 0.3 K/mcL (0.0-1.3); Monocytes % 5.9 %; Neutrophils # 4.8 K/mcL (1.6-8.9); Platelet Count 112 K/mcL (140-400); Red Blood Count 2.35 M/mcL (4.19-5.50); Red Cell Distribution Width 13.9 % (11.5-14.5); Segmented Neutrophils % 83.2 %
[2019-03-22 12:38] LABS: BUN/Creatinine Ratio 19 (6-26); Blood Urea Nitrogen 12 mg/dL (8-23); Calcium 6.8 mg/dL (8.6-10.3); Carbon Dioxide 21 mEq/L (23-29); Chloride 111 mEq/L (98-107); Glucose 92 mg/dL (70-105); Magnesium 1.7 mg/dL (1.6-2.6); Osmolality,Calculated 303 (280-300); Potassium 3.2 mEq/L (3.5-5.1); Sodium 147 mEq/L (136-145); White Blood Count 5.8 K/mcL (4.3-11.1); eGFR For African Americans > 60 (> 60); eGFR For Non-African Americans > 60 (> 60)
[2019-03-22] MEDS: Nitroglycerin 25 MG/250 ML INFUS..BTL IVC SCH ×3 (13:15→19:38)
[2019-03-22] MEDS ORDERED: niCARdipine 20 MG/200 ML MLS IVC ONE (13:19)
[2019-03-22] MEDS: *HR* FentaNYL (PF) 100 MCG/2 ML VIAL IVP PRN ×3 (13:25→22:47)
[2019-03-22] MEDS: niCARdipine 20 MG/200 ML MLS IVC SCH ×4 (13:34→23:34)
[2019-03-22] MEDS: Insulin Human Regular 100 UNIT in 0.9 % Sodium Chloride 100 ML IVC SCH ×2 (13:35→14:19)
[2019-03-22] MEDS: Pantoprazole 40 MG VIAL IVP SCH (13:50)
[2019-03-22 13:53] LABS: Basophils % 0.5 %; Eosinophils # 0.1 K/mcL (0.0-0.6); Eosinophils % 1.6 %; Hematocrit 29.3 % (37.5-50.1); Hemoglobin 10.3 g/dL (12.9-16.9); Immature Granulocytes % 0.5 % (0-4); Lymphocytes # 0.9 K/mcL (0.6-4.6); Lymphocytes % 10.9 %; Mean Corpuscular HGB Conc 35.2 g/dL (31.6-35.5); Mean Corpuscular Hemoglobin 32.1 pg (28.0-33.3); Mean Corpuscular Volume 91.3 fL (83.0-100.0); Mean Platelet Volume 8.8 fL (9.4-12.4); Monocytes # 0.9 K/mcL (0.0-1.3); Monocytes % 10.2 %; Neutrophils # 6.6 K/mcL (1.6-8.9); Platelet Count 146 K/mcL (140-400); Red Blood Count 3.21 M/mcL (4.19-5.50); Red Cell Distribution Width 13.9 % (11.5-14.5); Segmented Neutrophils % 76.3 %; White Blood Count 8.6 K/mcL (4.3-11.1)
[2019-03-22 14:40] LABS: BUN/Creatinine Ratio 17 (6-26); Blood Urea Nitrogen 14 mg/dL (8-23); Calcium 9.1 mg/dL (8.6-10.3); Carbon Dioxide 27 mEq/L (23-29); Chloride 101 mEq/L (98-107); Glucose 142 mg/dL (70-105); Osmolality,Calculated 283 (280-300); Sodium 135 mEq/L (136-145); eGFR For African Americans > 60 (> 60); eGFR For Non-African Americans > 60 (> 60)
[2019-03-22] MEDS: Clindamycin 900 MG/50 ML 900 MG/50 ML IV.SOLN IVPB SCH ×2 (15:20→23:33)
[2019-03-22 15:52] LABS: ABG Base Excess 0 mEq/L (-2 to 3); ABG HCO3 26 mEq/L (21-27); ABG Oxygen Saturation 97 % (95-98); ABG PCO2 46 mmHg (35-45); ABG PH 7.36 pH Units (7.32-7.45); ABG PO2 98 mmHg (85-104); ABG TCO2 27 mEq/L (20-26); Blood Gas Modality AF; Blood Gas VT 480 cc
[2019-03-22] MEDS: Metoclopramide 10 MG/2 ML VIAL IVP SCH ×2 (17:38→23:33)
[2019-03-22 17:43] LABS: Hematocrit 30.1 % (37.5-50.1); Hemoglobin 10.4 g/dL (12.9-16.9); Mean Corpuscular HGB Conc 34.6 g/dL (31.6-35.5); Mean Corpuscular Hemoglobin 31.4 pg (28.0-33.3); Mean Corpuscular Volume 90.9 fL (83.0-100.0); Platelet Count 154 K/mcL (140-400); Red Blood Count 3.31 M/mcL (4.19-5.50); Red Cell Distribution Width 13.9 % (11.5-14.5); White Blood Count 10.4 K/mcL (4.3-11.1)
[2019-03-22 18:01] LABS: BUN/Creatinine Ratio 16 (6-26); Blood Urea Nitrogen 15 mg/dL (8-23); Calcium 8.8 mg/dL (8.6-10.3); Carbon Dioxide 26 mEq/L (23-29); Chloride 103 mEq/L (98-107); Glucose 145 mg/dL (70-105); Magnesium 2.4 mg/dL (1.6-2.6); Osmolality,Calculated 283 (280-300); Potassium 4.2 mEq/L (3.5-5.1); Sodium 135 mEq/L (136-145); eGFR For African Americans > 60 (> 60); eGFR For Non-African Americans > 60 (> 60)
[2019-03-22] MEDS: *HR* OxyCODONE/APAP 5/325 TABLET PO PRN (20:09)
[2019-03-22] MEDS: Chlorhexidine Rinse 15 ML MOUTHWASH MM SCH (20:09)
[2019-03-22 21:29] LABS: ABG Base Excess -1 mEq/L (-2 to 3); ABG HCO3 25 mEq/L (21-27); ABG Oxygen Saturation 97 % (95-98); ABG PCO2 43 mmHg (35-45); ABG PH 7.37 pH Units (7.32-7.45); ABG PO2 92 mmHg (85-104); ABG TCO2 26 mEq/L (20-26); Blood Gas VT 480 cc
[2019-03-22 22:29] LABS: ABG Base Excess -1 mEq/L (-2 to 3); ABG HCO3 25 mEq/L (21-27); ABG Oxygen Saturation 98 % (95-98); ABG PCO2 43 mmHg (35-45); ABG PH 7.37 pH Units (7.32-7.45); ABG PO2 100 mmHg (85-104); ABG TCO2 26 mEq/L (20-26); Blood Gas Modality CPAP/PS; Blood Gas Pressure Support 5 cm H2O
[2019-03-23] MEDS: *HR* OxyCODONE/APAP 5/325 TABLET PO PRN ×5 (02:15→20:42)
[2019-03-23] MEDS: niCARdipine 20 MG/200 ML MLS IVC SCH ×2 (03:18→08:32)
[2019-03-23] MEDS: Nitroglycerin 25 MG/250 ML INFUS..BTL IVC SCH (03:19)
[2019-03-23 04:00] LABS: Basophils % 0.1 %; Hematocrit 27.1 % (37.5-50.1); Hemoglobin 9.6 g/dL (12.9-16.9); Immature Granulocytes % 0.5 % (0-4); Lymphocytes # 0.3 K/mcL (0.6-4.6); Mean Corpuscular HGB Conc 35.4 g/dL (31.6-35.5); Mean Corpuscular Hemoglobin 32.2 pg (28.0-33.3); Mean Corpuscular Volume 90.9 fL (83.0-100.0); Mean Platelet Volume 9.5 fL (9.4-12.4); Monocytes # 0.9 K/mcL (0.0-1.3); Monocytes % 10.7 %; Neutrophils # 7.3 K/mcL (1.6-8.9); Platelet Count 143 K/mcL (140-400); Red Blood Count 2.98 M/mcL (4.19-5.50); Red Cell Distribution Width 14.3 % (11.5-14.5); Segmented Neutrophils % 84.7 %; White Blood Count 8.6 K/mcL (4.3-11.1)
[2019-03-23 04:15] LABS: INR 1.2; Prothrombin Time 13.2 Seconds (9.4-12.1)
[2019-03-23 04:17] LABS: Activated Partial Thrombo Time 28.5 Seconds (26.0-36.0)
[2019-03-23 04:18] LABS: BUN/Creatinine Ratio 16 (6-26); Blood Urea Nitrogen 15 mg/dL (8-23); Calcium 8.3 mg/dL (8.6-10.3); Carbon Dioxide 24 mEq/L (23-29); Chloride 104 mEq/L (98-107); Glucose 138 mg/dL (70-105); Magnesium 1.9 mg/dL (1.6-2.6); Osmolality,Calculated 279 (280-300); Potassium 4.4 mEq/L (3.5-5.1); Sodium 133 mEq/L (136-145); eGFR For African Americans > 60 (> 60); eGFR For Non-African Americans > 60 (> 60)
[2019-03-23] MEDS: Metoclopramide 10 MG/2 ML VIAL IVP SCH ×3 (05:09→17:36)
[2019-03-23] MEDS: *HR* FentaNYL (PF) 100 MCG/2 ML VIAL IVP PRN (06:02)
[2019-03-23] MEDS: Pantoprazole 40 MG VIAL IVP SCH (08:29)
[2019-03-23] MEDS: Chlorhexidine Rinse 15 ML MOUTHWASH MM SCH ×2 (08:30→20:45)
[2019-03-23] MEDS ORDERED: Aspirin Enteric Coated 81 MG Tablet PO SCH (09:00)
[2019-03-23] MEDS ORDERED: Furosemide 20 MG/2 ML VIAL IVP SCH (09:00)
[2019-03-23] MEDS ORDERED: D5% in Water 1,000 ML IVC PRN (09:08)
[2019-03-23] MEDS ORDERED: Ondansetron 4 MG/2 ML VIAL IVP PRN (09:08)
[2019-03-23] MEDS ORDERED: *HR* Dextrose 50 % in Water (Syg) 50 ML SYRINGE IVP PRN (09:08)
[2019-03-23] MEDS ORDERED: *HR* FentaNYL (PF) 100 MCG/2 ML VIAL IVP PRN (09:08)
[2019-03-23] MEDS ORDERED: Dextrose Gel 15 GM/37.5 ML TUBE PO PRN ×2 (09:08)
[2019-03-23] MEDS ORDERED: Acetaminophen 325 MG TABLET PO PRN (09:08)
[2019-03-23] MEDS ORDERED: Insulin Human Regular 100 UNIT in 0.9 % Sodium Chloride 100 ML IV PRN (09:08)
[2019-03-23] MEDS ORDERED: Insulin Human Regular 100 UNIT in 0.9 % Sodium Chloride 100 ML IVC SCH (09:08)
[2019-03-23] MEDS ORDERED: Insulin Regular, Human 100 UNIT/ML IV PRN (09:08)
[2019-03-23] MEDS ORDERED: NON-FORMULARY MEDICATION 1 EACH EACH (Ipratropium Bromide 2 SPRAY) NS SCH (09:08)
[2019-03-23] MEDS: Insulin LISPRO 300 UNITS/3 ML VIAL SQ SCH ×3 (11:35→20:47)
[2019-03-23] MEDS: *HR* Metformin 500 MG TABLET PO SCH ×2 (11:55→17:36)
[2019-03-23] MEDS: Finasteride 5 MG TABLET PO SCH (11:57)
[2019-03-23] MEDS: amLODIPine 5 MG TABLET PO SCH (11:59)
[2019-03-23] MEDS: *HR* GlyBURIDE 5 MG TABLET PO SCH (11:59)
[2019-03-23] MEDS: *HR* SitaGLIPtin 25 MG TABLET PO SCH (12:02)
[2019-03-23] MEDS: *HR* Pioglitazone 45 MG TABLET PO SCH (12:02)
[2019-03-23] MEDS: *HR* Heparin 5,000 UNIT/ML VIAL SQ SCH ×2 (12:04→17:36)
[2019-03-23] MEDS ORDERED: (Mirabegron [Myrbetriq] 25 MG) PO SCH (13:00)
[2019-03-23] MEDS: Gabapentin 300 MG CAPSULE PO SCH (20:45)
[2019-03-23] MEDS: Furosemide 20 MG/2 ML VIAL IVP SCH (20:46)
[2019-03-23] MEDS ORDERED: DIPHENHYDRAMINE HCL PO SCH (21:00)
[2019-03-23] MEDS ORDERED: Ibuprofen 200 MG TABLET PO SCH (21:00)
[2019-03-23] MEDS ORDERED: IBUPROFEN PO SCH (21:00)
[2019-03-23] MEDS ORDERED: [UNRECOGNIZED DRUG - OTHER] PO SCH (21:00)
[2019-03-24] MEDS: Metoclopramide 10 MG/2 ML VIAL IVP SCH ×5 (00:38→22:41)
[2019-03-24] MEDS: *HR* OxyCODONE/APAP 5/325 TABLET PO PRN ×2 (00:38→22:40)
[2019-03-24 04:33] LABS: Basophils % 0.2 %; Eosinophils # 0.1 K/mcL (0.0-0.6); Eosinophils % 0.5 %; Hematocrit 28.2 % (37.5-50.1); Hemoglobin 9.3 g/dL (12.9-16.9); Immature Granulocytes % 0.4 % (0-4); Lymphocytes # 0.6 K/mcL (0.6-4.6); Lymphocytes % 6.2 %; Mean Corpuscular Hemoglobin 31.6 pg (28.0-33.3); Mean Corpuscular Volume 95.9 fL (83.0-100.0); Mean Platelet Volume 9.7 fL (9.4-12.4); Monocytes # 1.4 K/mcL (0.0-1.3); Monocytes % 13.6 %; Neutrophils # 7.9 K/mcL (1.6-8.9); Platelet Count 137 K/mcL (140-400); Red Blood Count 2.94 M/mcL (4.19-5.50); Red Cell Distribution Width 14.6 % (11.5-14.5); Segmented Neutrophils % 79.1 %
[2019-03-24 04:51] LABS: BUN/Creatinine Ratio 16 (6-26); Blood Urea Nitrogen 21 mg/dL (8-23); Calcium 8.3 mg/dL (8.6-10.3); Carbon Dioxide 23 mEq/L (23-29); Chloride 102 mEq/L (98-107); Glucose 248 mg/dL (70-105); Osmolality,Calculated 287 (280-300); Potassium 4.2 mEq/L (3.5-5.1); Sodium 133 mEq/L (136-145); eGFR For African Americans > 60 (> 60); eGFR For Non-African Americans 54 (> 60)
[2019-03-24] MEDS: *HR* Heparin 5,000 UNIT/ML VIAL SQ SCH ×2 (05:53→17:58)
[2019-03-24] MEDS: *HR* SitaGLIPtin 25 MG TABLET PO SCH (08:29)
[2019-03-24] MEDS: *HR* Pioglitazone 45 MG TABLET PO SCH (08:29)
[2019-03-24] MEDS: Aspirin Enteric Coated 81 MG Tablet PO SCH (08:29)
[2019-03-24] MEDS: *HR* GlyBURIDE 5 MG TABLET PO SCH (08:29)
[2019-03-24] MEDS: *HR* Metformin 500 MG TABLET PO SCH ×2 (08:29→17:58)
[2019-03-24] MEDS: Finasteride 5 MG TABLET PO SCH (08:29)
[2019-03-24] MEDS: Chlorhexidine Rinse 15 ML MOUTHWASH MM SCH ×2 (08:30→20:59)
[2019-03-24] MEDS: amLODIPine 5 MG TABLET PO SCH (08:30)
[2019-03-24] MEDS: Furosemide 20 MG/2 ML VIAL IVP SCH (08:30)
[2019-03-24] MEDS: Pantoprazole 40 MG VIAL IVP SCH (08:30)
[2019-03-24] MEDS: Insulin LISPRO 300 UNITS/3 ML VIAL SQ SCH ×4 (08:31→20:59)
[2019-03-24] MEDS ORDERED: Ibuprofen 400 MG TABLET PO PRN (08:44)
[2019-03-24] MEDS: Gabapentin 300 MG CAPSULE PO SCH (21:00)
[2019-03-25] MEDS: Metoclopramide 10 MG/2 ML VIAL IVP SCH ×3 (06:25→17:08)
[2019-03-25] MEDS: *HR* Heparin 5,000 UNIT/ML VIAL SQ SCH ×2 (06:25→17:07)
[2019-03-25] MEDS: Finasteride 5 MG TABLET PO SCH (09:02)
[2019-03-25] MEDS: *HR* SitaGLIPtin 25 MG TABLET PO SCH (09:02)
[2019-03-25] MEDS: *HR* Metformin 500 MG TABLET PO SCH ×2 (09:02→17:07)
[2019-03-25] MEDS: Pantoprazole 40 MG VIAL IVP SCH (09:02)
[2019-03-25] MEDS: *HR* Pioglitazone 45 MG TABLET PO SCH (09:02)
[2019-03-25] MEDS: Insulin LISPRO 300 UNITS/3 ML VIAL SQ SCH ×4 (09:03→20:53)
[2019-03-25] MEDS: *HR* GlyBURIDE 5 MG TABLET PO SCH (09:03)
[2019-03-25] MEDS: Aspirin Enteric Coated 81 MG Tablet PO SCH (09:03)
[2019-03-25] MEDS: Chlorhexidine Rinse 15 ML MOUTHWASH MM SCH ×2 (09:03→20:50)
[2019-03-25] MEDS: Gabapentin 300 MG CAPSULE PO SCH (20:50)
[2019-03-26] MEDS: *HR* Heparin 5,000 UNIT/ML VIAL SQ SCH ×2 (06:27→17:11)
[2019-03-26] MEDS: *HR* Metformin 500 MG TABLET PO SCH ×2 (07:53→17:10)
[2019-03-26] MEDS: Pantoprazole 40 MG VIAL IVP SCH (07:53)
[2019-03-26] MEDS: Chlorhexidine Rinse 15 ML MOUTHWASH MM SCH ×2 (07:53→21:14)
[2019-03-26] MEDS: Insulin LISPRO 300 UNITS/3 ML VIAL SQ SCH ×4 (07:53→21:12)
[2019-03-26] MEDS: *HR* Pioglitazone 45 MG TABLET PO SCH (07:54)
[2019-03-26] MEDS: Aspirin Enteric Coated 81 MG Tablet PO SCH (07:54)
[2019-03-26] MEDS: Finasteride 5 MG TABLET PO SCH (07:54)
[2019-03-26] MEDS: *HR* SitaGLIPtin 25 MG TABLET PO SCH (07:54)
[2019-03-26] MEDS: *HR* GlyBURIDE 5 MG TABLET PO SCH (07:54)
[2019-03-26] MEDS: Gabapentin 300 MG CAPSULE PO SCH (21:13)
[2019-03-27] MEDS: *HR* Heparin 5,000 UNIT/ML VIAL SQ SCH (05:33)
[2019-03-27 07:24] VITALS: BP 142/68
== END 2019-03-27 14:14 | DRG 236 ==
LOC: SAMDAY 06:14 → ICNU 12:38 → 2NNU 03-23 11:35
PROVIDERS: ADMIT Thoracic Surgery (Cardiothoracic Vascular Surgery); ATTEND Thoracic Surgery (Cardiothoracic Vascular Surgery)

== ENCOUNTER 2020-10-01 15:46 | Observation (INO) ==
[2020-10-01] MEDS ORDERED: Isovue-370 500 ML BOTTLE IVP ONE (16:03)
[2020-10-01] MEDS ORDERED: 0.9 % Sodium Chloride 1,000 ML ONE (16:08)
[2020-10-01] MEDS ORDERED: 0.9 % Sodium Chloride 1,000 ML IVC ONE ×2 (16:10→17:36)
[2020-10-01 16:19] LABS: Hematocrit 35.9 % (37.5-50.1); Hemoglobin 11.9 g/dL (12.9-16.9); Mean Corpuscular HGB Conc 33.1 g/dL (31.6-35.5); Mean Corpuscular Hemoglobin 32.3 pg (28.0-33.3); Mean Corpuscular Volume 97.6 fL (83.0-100.0); Mean Platelet Volume 9.2 fL (9.4-12.4); Platelet Count 214 K/mcL (140-400); Red Blood Count 3.68 M/mcL (4.19-5.50); Red Cell Distribution Width 14.2 % (11.5-14.5); White Blood Count 13.6 K/mcL (4.3-11.1)
[2020-10-01 16:27] LABS: INR 1.1; Prothrombin Time 12.4 Seconds (9.4-12.1)
[2020-10-01 16:29] LABS: Activated Partial Thrombo Time 26.4 Seconds (26.0-36.0)
[2020-10-01 16:31] LABS: BUN/Creatinine Ratio 18 (6-26); Blood Urea Nitrogen 28 mg/dL (8-23); Calcium 8.5 mg/dL (8.6-10.3); Carbon Dioxide 22 mEq/L (23-29); Chloride 102 mEq/L (98-107); Glucose 159 mg/dL (70-105); Osmolality,Calculated 285 (280-300); Potassium 4.9 mEq/L (3.5-5.1); Sodium 133 mEq/L (136-145); eGFR For African Americans 51 (> 60); eGFR For Non-African Americans 42 (> 60)
[2020-10-01 16:34] LABS: Troponin I < 0.03 ng/mL (< 0.04)
[2020-10-01] MEDS ORDERED: 0.9 % Sodium Chloride 500 ML IVC ONE (17:35)
[2020-10-01 17:49] LABS: Creatine Kinase 33 Units/L (30-223)
[2020-10-01] MEDS ORDERED: Acetaminophen 325 MG TABLET PO PRN (17:52)
[2020-10-01] MEDS ORDERED: Ondansetron 4 MG/2 ML VIAL IVP PRN (17:52)
[2020-10-01] MEDS ORDERED: Dextrose Gel 15 GM/37.5 ML TUBE PO PRN ×2 (18:01)
[2020-10-01] MEDS ORDERED: D5% in Water 1,000 ML IVC PRN (18:01)
[2020-10-01] MEDS ORDERED: *HR* Dextrose 50 % in Water (Vial) 50 ML VIAL IVP PRN (18:01)
[2020-10-01] MEDS: *HR* Heparin 5,000 UNIT/ML VIAL SQ SCH (20:59)
[2020-10-01] MEDS ORDERED: Gabapentin 300 MG CAPSULE PO SCH (21:00)
[2020-10-01] MEDS ORDERED: Melatonin 3 MG TABLET PO SCH (21:00)
[2020-10-02 02:13] LABS: Bilirubin,Urine Negative (Negative); Blood,Urine Negative (Negative); Clarity,Urine Clear (Clear); Color,Urine Light-Yellow (Yellow); Glucose,Urine (UA) Normal (Normal); Ketones,Urine Negative (Negative); Leukocyte Esterase,Urine Negative (Negative); Nitrite,Urine Negative (Negative); PH,Urine 5.5 pH Units (5.0-8.0); Protein,Urine Negative (Neg-Trace); Specific Gravity,Urine > 1.030 (1.010-1.025); Urobilinogen,Urine Normal (Normal)
[2020-10-02 05:03] LABS: Hematocrit 34.1 % (37.5-50.1); Hemoglobin 11.1 g/dL (12.9-16.9); Mean Corpuscular HGB Conc 32.6 g/dL (31.6-35.5); Mean Corpuscular Hemoglobin 31.2 pg (28.0-33.3); Mean Corpuscular Volume 95.8 fL (83.0-100.0); Mean Platelet Volume 9.5 fL (9.4-12.4); Platelet Count 198 K/mcL (140-400); Red Blood Count 3.56 M/mcL (4.19-5.50); Red Cell Distribution Width 14.1 % (11.5-14.5)
[2020-10-02 05:09] LABS: White Blood Count 5.5 K/mcL (4.3-11.1)
[2020-10-02 05:23] LABS: BUN/Creatinine Ratio 21 (6-26); Blood Urea Nitrogen 25 mg/dL (8-23); Calcium 8.3 mg/dL (8.6-10.3); Carbon Dioxide 21 mEq/L (23-29); Chloride 107 mEq/L (98-107); Glucose 75 mg/dL (70-105); Magnesium 1.3 mg/dL (1.6-2.6); Osmolality,Calculated 285 (280-300); Sodium 136 mEq/L (136-145); eGFR For African Americans > 60 (> 60); eGFR For Non-African Americans 58 (> 60)
[2020-10-02] MEDS: *HR* Heparin 5,000 UNIT/ML VIAL SQ SCH (05:44)
[2020-10-02 07:54] VITALS: BP 124/78
[2020-10-02] MEDS ORDERED: Finasteride 5 MG TABLET PO SCH (09:00)
[2020-10-02] MEDS ORDERED: Metoprolol XL (24 HR) Succ 50 MG TAB.ER.24H PO SCH (09:00)
== END 2020-10-02 11:20 | disposition home or self-care (01) ==
LOC: 3BNU 15:46 → EMEROOARM 15:46 → SUATTDRO 17:39 → 3ANU 17:58
PROVIDERS: ADMIT Internal Medicine; ATTEND Internal Medicine

== ENCOUNTER 2022-03-18 09:59 | Inpatient (IN) ==
[2022-03-18] MEDS ORDERED: Iopamidol - 370 500 ML MLS IVP ONE (10:14)
[2022-03-18 10:49] LABS: Hematocrit 41.3 % (37.5-50.1); Mean Corpuscular HGB Conc 33.4 g/dL (31.6-35.5); Mean Corpuscular Hemoglobin 31.4 pg (28.0-33.3); Mean Corpuscular Volume 93.9 fL (83.0-100.0); Mean Platelet Volume 10.1 fL (9.4-12.4); Platelet Count 178 K/mcL (140-400); Red Cell Distribution Width 15.4 % (11.5-14.5); White Blood Count 6.3 K/mcL (4.3-11.1)
[2022-03-18 10:58] LABS: INR 1.1; Prothrombin Time 12.2 Seconds (9.4-12.1)
[2022-03-18 11:03] LABS: Hemoglobin 13.8 g/dL (12.9-16.9)
[2022-03-18 11:12] LABS: BUN/Creatinine Ratio 17 (6-26); Blood Urea Nitrogen 20 mg/dL (8-23); Calcium 9.2 mg/dL (8.6-10.3); Carbon Dioxide 25 mEq/L (23-29); Chloride 104 mEq/L (98-107); Glucose 155 mg/dL (70-105); Osmolality,Calculated 292 (280-300); Potassium 4.3 mEq/L (3.5-5.1); Sodium 138 mEq/L (136-145); Troponin I < 0.03 ng/mL (< 0.04)
[2022-03-18 12:04] LABS: Bilirubin,Urine Negative (Negative); Blood,Urine Negative (Negative); Clarity,Urine Clear (Clear); Color,Urine Light-Yellow (Yellow); Glucose,Urine (UA) Normal (Normal); Ketones,Urine Negative (Negative); Leukocyte Esterase,Urine Negative (Negative); Nitrite,Urine Negative (Negative); Protein,Urine Negative (Neg-Trace); Specific Gravity,Urine 1.026 (1.010-1.025); Urobilinogen,Urine Normal (Normal)
[2022-03-18] MEDS ORDERED: Dextrose Gel 15 GM/37.5 ML TUBE PO PRN ×2 (13:25)
[2022-03-18] MEDS ORDERED: D5% in Water 1,000 ML IVC PRN (13:25)
[2022-03-18] MEDS ORDERED: *HR* Dextrose 50 % in Water (Syg) 50 ML SYRINGE IVP PRN (13:25)
[2022-03-18] MEDS ORDERED: Naloxone 0.4 MG/ML INJ IVP PRN (13:25)
[2022-03-18] MEDS ORDERED: Ondansetron 4 MG/2 ML VIAL IVP PRN (13:25)
[2022-03-18] MEDS: 0.9 % Sodium Chloride 1,000 ML IVC SCH (14:23)
[2022-03-18] MEDS: Insulin LISPRO 300 UNITS/3 ML VIAL SUBQ SCH ×2 (16:29→21:02)
[2022-03-18] MEDS ORDERED: Insulin DETEMIR 100 UNIT/ML X5UNITS SUBQ SCH (21:00)
[2022-03-18] MEDS: Melatonin 3 MG TABLET PO PRN (21:06)
[2022-03-18] MEDS: QUEtiapine Fumarate 25 MG TABLET PO SCH (21:07)
[2022-03-19 03:14] LABS: Estimated Average Glucose 148 mg/dl; Hemoglobin A1C 6.8 %
[2022-03-19 03:24] LABS: INR 1.2; Prothrombin Time 13.1 Seconds (9.4-12.1)
[2022-03-19 03:55] LABS: Alanine Aminotransferase 6 Units/L (7-52); Albumin 3.3 g/dL (3.5-5.7); Albumin/Globulin Ratio 1.5 (1.1-2.2); Alkaline Phosphatase 49 Units/L (34-104); Aspartate Amino Transferase 9 Units/L (13-39); BUN/Creatinine Ratio 16 (6-26); Bilirubin,Total 0.4 mg/dL (0.3-1.0); Blood Urea Nitrogen 19 mg/dL (8-23); Calcium 8.5 mg/dL (8.6-10.3); Carbon Dioxide 25 mEq/L (23-29); Chloride 107 mEq/L (98-107); Chol/HDL Ratio 2.7 (0-4.9); Cholesterol 103 mg/dL (< 200); Globulin 2.2 g/dL (2.4-3.5); Glucose 98 mg/dL (70-105); HDL Cholesterol 38 mg/dL (40-59); LDL Cholesterol,Calculated 47 mg/dL (< 100); LDL Cholesterol,Direct 53 mg/dL (75-193); Osmolality,Calculated 290 (280-300); Potassium 3.8 mEq/L (3.5-5.1); Sodium 139 mEq/L (136-145); Total Protein 5.5 g/dL (6.4-8.9); Triglycerides 91 mg/dL (< 150); Troponin I < 0.03 ng/mL (< 0.04)
[2022-03-19] MEDS: 0.9 % Sodium Chloride 1,000 ML IVC SCH (04:58)
[2022-03-19] MEDS: Insulin LISPRO 300 UNITS/3 ML VIAL SUBQ SCH ×4 (07:20→20:04)
[2022-03-19] MEDS: Aspirin Enteric Coated 81 MG Tablet PO SCH (09:01)
[2022-03-19] MEDS: Gabapentin 300 MG CAPSULE PO SCH (15:06)
[2022-03-19] MEDS: Finasteride 5 MG TABLET PO SCH (15:07)
[2022-03-19] MEDS: Melatonin 3 MG TABLET PO PRN (20:12)
[2022-03-19] MEDS: QUEtiapine Fumarate 25 MG TABLET PO SCH (20:12)
[2022-03-20] MEDS: Insulin LISPRO 300 UNITS/3 ML VIAL SUBQ SCH ×4 (08:36→21:00)
[2022-03-20] MEDS: Gabapentin 300 MG CAPSULE PO SCH (08:38)
[2022-03-20] MEDS: Aspirin Enteric Coated 81 MG Tablet PO SCH (08:38)
[2022-03-20] MEDS: Finasteride 5 MG TABLET PO SCH (08:38)
[2022-03-20] MEDS: Metoprolol XL (24 HR) Succ 50 MG TAB.ER.24H PO SCH (08:41)
[2022-03-20] MEDS: QUEtiapine Fumarate 25 MG TABLET PO SCH (21:19)
[2022-03-21] MEDS: Insulin LISPRO 300 UNITS/3 ML VIAL SUBQ SCH ×3 (08:01→16:42)
[2022-03-21] MEDS: Aspirin Enteric Coated 81 MG Tablet PO SCH (09:14)
[2022-03-21] MEDS: Finasteride 5 MG TABLET PO SCH (09:14)
[2022-03-21] MEDS: Gabapentin 300 MG CAPSULE PO SCH (09:14)
[2022-03-21] MEDS: Metoprolol XL (24 HR) Succ 50 MG TAB.ER.24H PO SCH (09:14)
[2022-03-21] MEDS ORDERED: Lidocaine Viscous Oral Soln 15 ML SOLUTION MM PRN (10:17)
[2022-03-21] MEDS ORDERED: 0.9 % Sodium Chloride 500 ML IVC SCH (10:30)
[2022-03-21] MEDS: *HR* FentaNYL (PF) 100 MCG/2 ML VIAL IVP PRN ×2 (11:00→11:14)
[2022-03-21] MEDS: *HR* Midazolam HCl 5 MG/5 ML VIAL IVP PRN ×2 (11:00→11:13)
[2022-03-21 14:14] LABS: Influenza A PCR Negative (Negative); Influenza B PCR Negative (Negative); Resp. Syncytial Virus PCR Negative (Negative)
[2022-03-21 15:06] LABS: SARS-CoV-2 by PCR (In House) Negative (Negative)
[2022-03-21 15:11] VITALS: BP 152/77; PULSE 81; TEMP 98.3; O2SAT 93
== END 2022-03-21 19:00 | DRG 65 ==
LOC: EMEROOARM 09:59 → 3BNU 09:59 → SUATTDRO 13:23 → 3BNU 13:27
PROVIDERS: ADMIT Hospitalist; ATTEND Internal Medicine